=== PATIENT | female | born 1995 | race African-American/Black ===

== ENCOUNTER 2021-08-01 11:31 | Outpatient (REF) | payer MEDICAID, SELFPAY ==
[2021-08-01 14:40] LABS: Abs Immature Grans 0.04 10^3/uL (0.0-0.06); Absolute Basophil Count 0.04 10^3/uL (0.0-0.2); Absolute Eosinophil Count 0.36 10^3/uL (0.0-0.7); Absolute Monocyte Count 0.78 10^3/uL (0.1-0.8); Absolute Neutrophil Count 5.19 10^3/uL (1.2-6.7); Basophils % 0.5; Eosinophils % 4.4; HCT 41.2 % (36.0-46.0); HGB 13.4 g/dL (11.2-15.7); Immature Grans % 0.5; MCH 28.4 pg (27.0-33.0); MCHC 32.5 % (32.0-36.0); MCV 87.3 fL (80-95); Monocytes % 9.6; Nucleated RBC 0 %; Platelet Count 319 10^3/uL (130-400); RBC 4.72 10^6/uL (3.93-5.22); RDW 12.4 % (11.7-14.6); RDW-SD 39.7 fL; WBC 8.11 10^3/uL (4.4-10.8)
[2021-08-01 14:47] LABS: Lithium 0.4 mmol/l (0.6-1.2)
[2021-08-01 14:59] LABS: BUN 11 mg/dL (7-18); CREATININE 0.8 mg/dL (0.55-1.02); Calcium 8.8 mg/dL (8.5-10.1); Calculated LDL 104 mg/dL (<100); Cholesterol 201 mg/dL (<200); Glucose 130 mg/dL (74-106); HDL Cholesterol 44 mg/dL (40-60); Hemoglobin A1C 5.2 % (<5.7); TSH (W/Ref FT4) 0.96 uIU/mL (0.36-3.74); Triglyceride 268 mg/dL (<150)
== END 2021-08-01 11:32 | disposition home or self-care (01) ==
LOC: NCHCN 11:31
PROVIDERS: Visit Provider Psychiatry & Neurology Psychiatry
DX: F60.3 Borderline personality disorder (principal); Z79.899 Other long term (current) drug therapy
CPT/HCPCS: 80061; 82947; 84520; 80178; 82310; 82565; 83036; 84443; 85025

== ENCOUNTER 2021-08-13 21:18 | Outpatient (REF) | payer MEDICAID, SELFPAY ==
[2021-08-15 13:39] LABS: COVID-19 RT-PCR UVMMC Result Negative (Negative)
== END 2021-08-13 21:19 | disposition home or self-care (01) ==
LOC: NCHCN 21:18
PROVIDERS: Visit Provider Family Medicine
DX: Z20.822 Contact with and (suspected) exposure to COVID-19 (principal); J06.9 Acute upper respiratory infection, unspecified
CPT/HCPCS: U0003

== ENCOUNTER 2021-08-21 10:30 | Outpatient (REF) | payer MEDICAID, SELFPAY ==
[2021-08-21 13:15] LABS: Abs Immature Grans 0.03 10^3/uL (0.0-0.06); Absolute Basophil Count 0.04 10^3/uL (0.0-0.2); Absolute Eosinophil Count 0.23 10^3/uL (0.0-0.7); Absolute Lymphocyte Count 1.49 10^3/uL (1.2-3.4); Absolute Monocyte Count 0.57 10^3/uL (0.1-0.8); Absolute Neutrophil Count 5.71 10^3/uL (1.2-6.7); Basophils % 0.5; Eosinophils % 2.9; HGB 13.8 g/dL (11.2-15.7); Immature Grans % 0.4; Lymphocytes % 18.5; MCH 27.9 pg (27.0-33.0); MCHC 32.1 % (32.0-36.0); MPV 10.8 fL (8.0-11.0); Monocytes % 7.1; Neutrophils % 70.6; Nucleated RBC 0 %; Platelet Count 330 10^3/uL (130-400); RBC 4.94 10^6/uL (3.93-5.22); RDW 12.7 % (11.7-14.6); RDW-SD 39.9 fL; WBC 8.07 10^3/uL (4.4-10.8)
== END 2021-08-21 10:31 | disposition home or self-care (01) ==
LOC: LBN 10:30
PROVIDERS: Visit Provider Psychiatry & Neurology Psychiatry
DX: F60.3 Borderline personality disorder (principal); Z79.899 Other long term (current) drug therapy
CPT/HCPCS: 85025

== ENCOUNTER 2021-09-18 12:20 | Outpatient (REF) | payer MEDICAID, SELFPAY ==
[2021-09-18 15:56] LABS: Abs Immature Grans 0.03 10^3/uL (0.0-0.06); Absolute Basophil Count 0.06 10^3/uL (0.0-0.2); Absolute Eosinophil Count 0.16 10^3/uL (0.0-0.7); Absolute Lymphocyte Count 2.47 10^3/uL (1.2-3.4); Absolute Monocyte Count 0.71 10^3/uL (0.1-0.8); Absolute Neutrophil Count 4.96 10^3/uL (1.2-6.7); Basophils % 0.7; Eosinophils % 1.9; HCT 41.9 % (36.0-46.0); HGB 13.5 g/dL (11.2-15.7); Immature Grans % 0.4; Lymphocytes % 29.4; MCHC 32.2 % (32.0-36.0); MCV 86.7 fL (80-95); MPV 11.4 fL (8.0-11.0); Monocytes % 8.5; Neutrophils % 59.1; Nucleated RBC 0 %; Platelet Count 306 10^3/uL (130-400); RBC 4.83 10^6/uL (3.93-5.22); RDW 12.8 % (11.7-14.6); RDW-SD 40.7 fL; WBC 8.39 10^3/uL (4.4-10.8)
== END 2021-09-18 12:21 | disposition home or self-care (01) ==
LOC: LBN 12:20
PROVIDERS: Visit Provider Psychiatry & Neurology Psychiatry
DX: F60.3 Borderline personality disorder (principal); Z79.899 Other long term (current) drug therapy
CPT/HCPCS: 85025

== ENCOUNTER 2021-10-23 16:24 | Outpatient (REF) | payer MEDICAID, SELFPAY ==
[2021-10-23 15:48] LABS: Abs Immature Grans 0.02 10^3/uL (0.0-0.06); Absolute Basophil Count 0.04 10^3/uL (0.0-0.2); Absolute Eosinophil Count 0.31 10^3/uL (0.0-0.7); Absolute Lymphocyte Count 2.51 10^3/uL (1.2-3.4); Absolute Monocyte Count 0.53 10^3/uL (0.1-0.8); Absolute Neutrophil Count 3.39 10^3/uL (1.2-6.7); Basophils % 0.6; Eosinophils % 4.6; HCT 42.2 % (36.0-46.0); HGB 13.7 g/dL (11.2-15.7); Immature Grans % 0.3; Lymphocytes % 36.9; MCH 28.3 pg (27.0-33.0); MCHC 32.5 % (32.0-36.0); MCV 87.2 fL (80-95); MPV 11.7 fL (8.0-11.0); Monocytes % 7.8; Neutrophils % 49.8; Nucleated RBC 0 %; Platelet Count 314 10^3/uL (130-400); RBC 4.84 10^6/uL (3.93-5.22); RDW 12.4 % (11.7-14.6); RDW-SD 39.8 fL
== END 2021-10-23 16:25 | disposition home or self-care (01) ==
LOC: NCHCN 16:24
PROVIDERS: Visit Provider Psychiatry & Neurology Psychiatry
DX: F60.3 Borderline personality disorder (principal); Z79.899 Other long term (current) drug therapy
CPT/HCPCS: 85025

== ENCOUNTER 2021-11-20 08:19 | Outpatient (REF) | payer MEDICAID, SELFPAY ==
[2021-11-20 14:45] LABS: Abs Immature Grans 0.08 10^3/uL (0.0-0.06); Absolute Basophil Count 0.04 10^3/uL (0.0-0.2); Absolute Eosinophil Count 0.12 10^3/uL (0.0-0.7); Absolute Lymphocyte Count 2.63 10^3/uL (1.2-3.4); Absolute Monocyte Count 0.76 10^3/uL (0.1-0.8); Absolute Neutrophil Count 5.36 10^3/uL (1.2-6.7); Basophils % 0.4; Eosinophils % 1.3; HCT 43.4 % (36.0-46.0); Immature Grans % 0.9; Lymphocytes % 29.3; MCH 27.8 pg (27.0-33.0); MCHC 32.3 % (32.0-36.0); MCV 86.1 fL (80-95); MPV 11.2 fL (8.0-11.0); Monocytes % 8.5; Neutrophils % 59.6; Nucleated RBC 0 %; Platelet Count 285 10^3/uL (130-400); RBC 5.04 10^6/uL (3.93-5.22); RDW 12.5 % (11.7-14.6); RDW-SD 38.9 fL; WBC 8.99 10^3/uL (4.4-10.8)
== END 2021-11-20 08:20 | disposition home or self-care (01) ==
LOC: LBN 08:19
PROVIDERS: Visit Provider Psychiatry & Neurology Psychiatry
DX: F60.3 Borderline personality disorder (principal); Z79.899 Other long term (current) drug therapy
CPT/HCPCS: 85025

== ENCOUNTER 2021-12-17 13:15 | Outpatient (REF) | payer MEDICAID, SELFPAY ==
[2021-12-17 20:41] LABS: Abs Immature Grans 0.03 10^3/uL (0.0-0.06); Absolute Basophil Count 0.04 10^3/uL (0.0-0.2); Absolute Eosinophil Count 0.16 10^3/uL (0.0-0.7); Absolute Lymphocyte Count 1.94 10^3/uL (1.2-3.4); Absolute Monocyte Count 0.75 10^3/uL (0.1-0.8); Absolute Neutrophil Count 6.59 10^3/uL (1.2-6.7); Basophils % 0.4; Eosinophils % 1.7; HCT 42.8 % (36.0-46.0); HGB 13.7 g/dL (11.2-15.7); Immature Grans % 0.3; Lymphocytes % 20.4; MCV 87.3 fL (80-95); MPV 11.9 fL (8.0-11.0); Monocytes % 7.9; Neutrophils % 69.3; Platelet Count 290 10^3/uL (130-400); RDW 12.5 % (11.7-14.6); WBC 9.51 10^3/uL (4.4-10.8)
[2021-12-17 21:04] LABS: TSH 1.25 uIU/mL (0.36-3.74)
== END 2021-12-17 13:16 | disposition home or self-care (01) ==
LOC: NCHCN 13:15
PROVIDERS: PCP Internal Medicine; Visit Provider Internal Medicine
DX: F60.3 Borderline personality disorder (principal); Z79.899 Other long term (current) drug therapy; E03.9 Hypothyroidism, unspecified
CPT/HCPCS: 84443; 85025

== ENCOUNTER 2022-01-07 08:51 | Outpatient (REF) | payer MEDICAID, SELFPAY ==
[2022-01-07 14:54] LABS: Abs Immature Grans 0.02 10^3/uL (0.0-0.06); Absolute Basophil Count 0.03 10^3/uL (0.0-0.2); Absolute Eosinophil Count 0.08 10^3/uL (0.0-0.7); Absolute Lymphocyte Count 2.27 10^3/uL (1.2-3.4); Absolute Neutrophil Count 6.79 10^3/uL (1.2-6.7); Basophils % 0.3; Eosinophils % 0.8; HCT 41.3 % (36.0-46.0); HGB 13.7 g/dL (11.2-15.7); Immature Grans % 0.2; Lymphocytes % 22.5; MCH 28.8 pg (27.0-33.0); MCHC 33.2 % (32.0-36.0); MCV 87 fL (80-95); MPV 11.5 fL (8.0-11.0); Monocytes % 8.9; Neutrophils % 67.3; Platelet Count 311 10^3/uL (130-400); RBC 4.75 10^6/uL (3.93-5.22); RDW-SD 38.5 fL; WBC 10.09 10^3/uL (4.4-10.8)
== END 2022-01-07 08:52 | disposition home or self-care (01) ==
LOC: LBN 08:51
PROVIDERS: PCP Internal Medicine; Visit Provider Psychiatry & Neurology Psychiatry
DX: F60.3 Borderline personality disorder (principal); Z79.899 Other long term (current) drug therapy
CPT/HCPCS: 85025

== ENCOUNTER 2022-02-10 09:43 | Outpatient (REF) | payer MEDICAID, SELFPAY ==
[2022-02-10 14:06] LABS: Abs Immature Grans 0.03 10^3/uL (0.0-0.06); Absolute Basophil Count 0.03 10^3/uL (0.0-0.2); Absolute Eosinophil Count 0.08 10^3/uL (0.0-0.7); Absolute Lymphocyte Count 2.07 10^3/uL (1.2-3.4); Absolute Monocyte Count 0.61 10^3/uL (0.1-0.8); Absolute Neutrophil Count 4.27 10^3/uL (1.2-6.7); Basophils % 0.4; Eosinophils % 1.1; HCT 41.7 % (36.0-46.0); HGB 14.2 g/dL (11.2-15.7); Immature Grans % 0.4; Lymphocytes % 29.2; MCH 28.9 pg (27.0-33.0); MCHC 34.1 % (32.0-36.0); MCV 85 fL (80-95); MPV 11.5 fL (8.0-11.0); Monocytes % 8.6; Neutrophils % 60.3; Platelet Count 302 10^3/uL (130-400); RBC 4.91 10^6/uL (3.93-5.22); RDW-SD 36.8 fL; WBC 7.09 10^3/uL (4.4-10.8)
== END 2022-02-10 09:44 | disposition home or self-care (01) ==
LOC: LBN 09:43
PROVIDERS: PCP Internal Medicine; Visit Provider Psychiatry & Neurology Psychiatry
DX: F60.3 Borderline personality disorder (principal); Z79.899 Other long term (current) drug therapy
CPT/HCPCS: 85025

== ENCOUNTER 2022-03-12 15:48 | Outpatient (REF) | payer MEDICAID, SELFPAY ==
[2022-03-12 15:15] LABS: Abs Immature Grans 0.04 10^3/uL (0.0-0.06); Absolute Basophil Count 0.04 10^3/uL (0.0-0.2); Absolute Eosinophil Count 0.16 10^3/uL (0.0-0.7); Absolute Lymphocyte Count 2.14 10^3/uL (1.2-3.4); Absolute Monocyte Count 0.71 10^3/uL (0.1-0.8); Absolute Neutrophil Count 6.55 10^3/uL (1.2-6.7); Basophils % 0.4; Eosinophils % 1.7; HCT 42.7 % (36.0-46.0); HGB 14.5 g/dL (11.2-15.7); Immature Grans % 0.4; Lymphocytes % 22.2; MCV 85 fL (80-95); MPV 11.4 fL (8.0-11.0); Monocytes % 7.4; Neutrophils % 67.9; Platelet Count 296 10^3/uL (130-400); RDW 12.3 % (11.7-14.6); RDW-SD 38.2 fL; WBC 9.64 10^3/uL (4.4-10.8)
== END 2022-03-12 15:49 | disposition home or self-care (01) ==
LOC: LBN 15:48
PROVIDERS: PCP Internal Medicine; Visit Provider Psychiatry & Neurology Psychiatry
DX: F60.3 Borderline personality disorder (principal); Z79.899 Other long term (current) drug therapy
CPT/HCPCS: 85025

== ENCOUNTER 2022-04-02 09:34 | Outpatient (REF) | payer MEDICAID, SELFPAY ==
[2022-04-02 15:13] LABS: Abs Immature Grans 0.04 10^3/uL (0.0-0.06); Absolute Basophil Count 0.05 10^3/uL (0.0-0.2); Absolute Eosinophil Count 0.08 10^3/uL (0.0-0.7); Absolute Lymphocyte Count 2.32 10^3/uL (1.2-3.4); Absolute Monocyte Count 0.78 10^3/uL (0.1-0.8); Absolute Neutrophil Count 6.42 10^3/uL (1.2-6.7); Basophils % 0.5; Eosinophils % 0.8; HCT 42.1 % (36.0-46.0); HGB 14.2 g/dL (11.2-15.7); Immature Grans % 0.4; Lymphocytes % 23.9; MCH 28.6 pg (27.0-33.0); MCHC 33.7 % (32.0-36.0); MCV 85 fL (80-95); MPV 11.4 fL (8.0-11.0); Neutrophils % 66.4; Platelet Count 285 10^3/uL (130-400); RBC 4.97 10^6/uL (3.93-5.22); RDW 12.2 % (11.7-14.6); RDW-SD 37.5 fL; WBC 9.69 10^3/uL (4.4-10.8)
== END 2022-04-02 09:35 | disposition home or self-care (01) ==
LOC: LBN 09:34
PROVIDERS: PCP Internal Medicine; Visit Provider Psychiatry & Neurology Psychiatry
DX: F60.3 Borderline personality disorder (principal); Z79.899 Other long term (current) drug therapy
CPT/HCPCS: 85025

== ENCOUNTER 2022-05-07 15:39 | Outpatient (REF) | payer MEDICAID, SELFPAY ==
[2022-05-07 18:09] LABS: Abs Immature Grans 0.02 10^3/uL (0.0-0.06); Absolute Basophil Count 0.03 10^3/uL (0.0-0.2); Absolute Eosinophil Count 0.18 10^3/uL (0.0-0.7); Absolute Monocyte Count 0.53 10^3/uL (0.1-0.8); Absolute Neutrophil Count 3.15 10^3/uL (1.2-6.7); Basophils % 0.5; Eosinophils % 2.9; HGB 14.3 g/dL (11.2-15.7); Immature Grans % 0.3; MCH 28.4 pg (27.0-33.0); MCHC 33.3 % (32.0-36.0); MCV 86 fL (80-95); MPV 11.8 fL (8.0-11.0); Monocytes % 8.4; Neutrophils % 49.9; Platelet Count 307 10^3/uL (130-400); RBC 5.03 10^6/uL (3.93-5.22); RDW 12.4 % (11.7-14.6); RDW-SD 38.2 fL; WBC 6.31 10^3/uL (4.4-10.8)
== END 2022-05-07 15:40 | disposition home or self-care (01) ==
LOC: LBN 15:39
PROVIDERS: PCP Internal Medicine; Visit Provider Psychiatry & Neurology Psychiatry
DX: F60.3 Borderline personality disorder (principal); Z79.899 Other long term (current) drug therapy
CPT/HCPCS: 85025

== ENCOUNTER 2022-06-04 10:31 | Outpatient (REF) | payer MEDICAID, SELFPAY ==
[2022-06-04 14:38] LABS: Abs Immature Grans 0.02 10^3/uL (0.0-0.06); Absolute Basophil Count 0.06 10^3/uL (0.0-0.2); Absolute Eosinophil Count 0.23 10^3/uL (0.0-0.7); Absolute Lymphocyte Count 2.05 10^3/uL (1.2-3.4); Absolute Monocyte Count 0.66 10^3/uL (0.1-0.8); Absolute Neutrophil Count 4.52 10^3/uL (1.2-6.7); Basophils % 0.8; Eosinophils % 3.1; HCT 42.4 % (36.0-46.0); HGB 14.1 g/dL (11.2-15.7); Immature Grans % 0.3; Lymphocytes % 27.2; MCH 28.5 pg (27.0-33.0); MCHC 33.3 % (32.0-36.0); MCV 86 fL (80-95); MPV 11.1 fL (8.0-11.0); Monocytes % 8.8; Neutrophils % 59.8; Platelet Count 296 10^3/uL (130-400); RBC 4.95 10^6/uL (3.93-5.22); RDW 11.9 % (11.7-14.6); WBC 7.54 10^3/uL (4.4-10.8)
== END 2022-06-04 10:32 | disposition home or self-care (01) ==
LOC: LBN 10:31
PROVIDERS: PCP Internal Medicine; Visit Provider Psychiatry & Neurology Psychiatry
DX: F60.3 Borderline personality disorder (principal); Z79.899 Other long term (current) drug therapy
CPT/HCPCS: 85025

== ENCOUNTER 2022-06-25 15:27 | Outpatient (REF) | payer MEDICAID, SELFPAY ==
[2022-06-25 14:15] LABS: Abs Immature Grans 0.05 10^3/uL (0.0-0.06); Absolute Basophil Count 0.05 10^3/uL (0.0-0.2); Absolute Eosinophil Count 0.22 10^3/uL (0.0-0.7); Absolute Lymphocyte Count 2.35 10^3/uL (1.2-3.4); Absolute Monocyte Count 0.92 10^3/uL (0.1-0.8); Absolute Neutrophil Count 8.23 10^3/uL (1.2-6.7); Basophils % 0.4; Eosinophils % 1.9; HCT 42.9 % (36.0-46.0); HGB 14.6 g/dL (11.2-15.7); Immature Grans % 0.4; Lymphocytes % 19.9; MCV 85 fL (80-95); MPV 11.6 fL (8.0-11.0); Monocytes % 7.8; Neutrophils % 69.6; Platelet Count 277 10^3/uL (130-400); RBC 5.03 10^6/uL (3.93-5.22); RDW 12.4 % (11.7-14.6); RDW-SD 38.2 fL; WBC 11.82 10^3/uL (4.4-10.8)
== END 2022-06-25 15:28 | disposition home or self-care (01) ==
LOC: LBN 15:27
PROVIDERS: PCP Internal Medicine; Visit Provider Psychiatry & Neurology Psychiatry
DX: F60.3 Borderline personality disorder (principal); Z79.899 Other long term (current) drug therapy
CPT/HCPCS: 85025

== ENCOUNTER 2022-07-09 15:46 | Outpatient (REF) | payer MEDICAID, SELFPAY ==
--- NOTE | 2022-07-09 13:00 | PAPFT_PTH ---
PATIENT: Yamile Forbes LOC: [facility] U#:[id number] AGE/SX: 26/F ROOM: RE07/09/[address]: Brittni Rodriguez : 1995 BED: DIS: 07/09/2022 SPEC #: [id number] RECD: 07/10/22 12:53 STATUS: JAMES REQ #: [id number] PAULINE: 07/09/22 13:[address]: Brittni Rodriguez DEPT: [facility] Cytology RECD BY: Vanessa Gaviria Tissues: 1 - CX/ENDOCX FOR PAP SMEARS Procedures: PAP THIN PREP/UVM Screening Comments:
== END 2022-07-09 15:47 | disposition home or self-care (01) ==
LOC: NCHCN 15:46
PROVIDERS: PCP Internal Medicine; Visit Provider Internal Medicine
DX: Z12.4 Encounter for screening for malignant neoplasm of cervix (principal)
CPT/HCPCS: 88142

== ENCOUNTER 2022-07-22 08:30 | Outpatient (REF) | payer MEDICAID, SELFPAY ==
[2022-07-22 14:58] LABS: Abs Immature Grans 0.04 10^3/uL (0.0-0.06); Absolute Basophil Count 0.07 10^3/uL (0.0-0.2); Absolute Eosinophil Count 0.29 10^3/uL (0.0-0.7); Absolute Lymphocyte Count 2.26 10^3/uL (1.2-3.4); Absolute Monocyte Count 0.78 10^3/uL (0.1-0.8); Absolute Neutrophil Count 5.09 10^3/uL (1.2-6.7); Basophils % 0.8; Eosinophils % 3.4; HCT 43.3 % (36.0-46.0); HGB 14.4 g/dL (11.2-15.7); Immature Grans % 0.5; Lymphocytes % 26.5; MCH 28.7 pg (27.0-33.0); MCHC 33.3 % (32.0-36.0); MCV 86 fL (80-95); MPV 11.4 fL (8.0-11.0); Monocytes % 9.1; Neutrophils % 59.7; Platelet Count 336 10^3/uL (130-400); RBC 5.02 10^6/uL (3.93-5.22); RDW 12.4 % (11.7-14.6); RDW-SD 38.6 fL; WBC 8.53 10^3/uL (4.4-10.8)
== END 2022-07-22 08:31 | disposition home or self-care (01) ==
LOC: LBN 08:30
PROVIDERS: PCP Internal Medicine
DX: Z79.899 Other long term (current) drug therapy (principal); F60.3 Borderline personality disorder
CPT/HCPCS: 85025

== ENCOUNTER 2022-08-12 13:59 | Outpatient (REF) | payer MEDICAID, SELFPAY ==
[2022-08-12 14:30] LABS: Abs Immature Grans 0.06 10^3/uL (0.0-0.06); Absolute Lymphocyte Count 2.39 10^3/uL (1.2-3.4); Absolute Monocyte Count 0.95 10^3/uL (0.1-0.8); Basophils % 0.3; Eosinophils % 2.5; HCT 42.5 % (36.0-46.0); HGB 14.1 g/dL (11.2-15.7); Immature Grans % 0.4; MCH 28.5 pg (27.0-33.0); MCHC 33.2 % (32.0-36.0); MCV 86 fL (80-95); Monocytes % 6.4; Neutrophils % 74.4; Platelet Count 306 10^3/uL (130-400); RBC 4.94 10^6/uL (3.93-5.22); RDW 12.3 % (11.7-14.6); RDW-SD 38.5 fL; WBC 14.92 10^3/uL (4.4-10.8)
[2022-08-12 14:31] LABS: Absolute Basophil Count 0.04 10^3/uL (0.0-0.2); Absolute Eosinophil Count 0.37 10^3/uL (0.0-0.7)
== END 2022-08-12 14:00 | disposition home or self-care (01) ==
LOC: LBN 13:59
PROVIDERS: PCP Internal Medicine; Visit Provider Internal Medicine
DX: Z79.899 Other long term (current) drug therapy (principal)
CPT/HCPCS: 85025

== ENCOUNTER 2022-09-02 13:33 | Outpatient (REF) | payer MEDICAID, SELFPAY ==
[2022-09-02 15:53] LABS: Abs Immature Grans 0.06 10^3/uL (0.0-0.06); Absolute Basophil Count 0.05 10^3/uL (0.0-0.2); Absolute Eosinophil Count 0.27 10^3/uL (0.0-0.7); Absolute Lymphocyte Count 2.66 10^3/uL (1.2-3.4); Absolute Monocyte Count 0.87 10^3/uL (0.1-0.8); Basophils % 0.5; Eosinophils % 2.6; HCT 41.4 % (36.0-46.0); HGB 13.7 g/dL (11.2-15.7); Immature Grans % 0.6; Lymphocytes % 25.6; MCH 28.5 pg (27.0-33.0); MCHC 33.1 % (32.0-36.0); MCV 86 fL (80-95); Monocytes % 8.4; Neutrophils % 62.3; Platelet Count 293 10^3/uL (130-400); RDW-SD 38.3 fL; WBC 10.41 10^3/uL (4.4-10.8)
== END 2022-09-02 13:34 | disposition home or self-care (01) ==
LOC: LBN 13:33
PROVIDERS: PCP Internal Medicine
DX: Z79.899 Other long term (current) drug therapy (principal)
CPT/HCPCS: 85025

== ENCOUNTER 2022-09-16 09:44 | Outpatient (REF) | payer MEDICAID, SELFPAY ==
[2022-09-16 15:14] LABS: Abs Immature Grans 0.01 10^3/uL (0.0-0.06); Absolute Basophil Count 0.05 10^3/uL (0.0-0.2); Absolute Eosinophil Count 0.33 10^3/uL (0.0-0.7); Absolute Monocyte Count 0.63 10^3/uL (0.1-0.8); Absolute Neutrophil Count 3.95 10^3/uL (1.2-6.7); Basophils % 0.7; Eosinophils % 4.8; HCT 41.8 % (36.0-46.0); HGB 14.1 g/dL (11.2-15.7); Immature Grans % 0.1; Lymphocytes % 27.7; MCH 28.8 pg (27.0-33.0); MCHC 33.7 % (32.0-36.0); MCV 85 fL (80-95); MPV 11.6 fL (8.0-11.0); Monocytes % 9.2; Neutrophils % 57.5; Platelet Count 312 10^3/uL (130-400); RDW 12.1 % (11.7-14.6); RDW-SD 37.4 fL; WBC 6.87 10^3/uL (4.4-10.8)
== END 2022-09-16 09:45 | disposition home or self-care (01) ==
LOC: LBN 09:44
PROVIDERS: PCP Internal Medicine; Visit Provider Student in an Organized Health Care Education/Training Program
DX: F60.3 Borderline personality disorder (principal); Z79.899 Other long term (current) drug therapy
CPT/HCPCS: 85025

== ENCOUNTER 2022-10-16 17:09 | Outpatient (REF) | payer MEDICAID, SELFPAY ==
[2022-10-16 14:21] LABS: Abs Immature Grans 0.03 10^3/uL (0.0-0.06); Absolute Basophil Count 0.05 10^3/uL (0.0-0.2); Absolute Eosinophil Count 0.31 10^3/uL (0.0-0.7); Absolute Lymphocyte Count 2.37 10^3/uL (1.2-3.4); Absolute Monocyte Count 0.73 10^3/uL (0.1-0.8); Absolute Neutrophil Count 4.95 10^3/uL (1.2-6.7); Basophils % 0.6; Eosinophils % 3.7; HGB 13.9 g/dL (11.2-15.7); Immature Grans % 0.4; Lymphocytes % 28.1; MCH 28.8 pg (27.0-33.0); MCHC 33.9 % (32.0-36.0); MCV 85 fL (80-95); MPV 11.6 fL (8.0-11.0); Monocytes % 8.6; Neutrophils % 58.6; Platelet Count 292 10^3/uL (130-400); RBC 4.83 10^6/uL (3.93-5.22); RDW 12.3 % (11.7-14.6); WBC 8.44 10^3/uL (4.4-10.8)
[2022-10-16 14:34] LABS: Hemoglobin A1C 5.1 % (<5.7)
[2022-10-16 14:42] LABS: ALT 13 U/L (14-59); AST 19 U/L (15-37); Albumin 3.3 g/dL (3.4-5.0); Alkaline Phosphatase 49 U/L (46-116); Anion Gap 12.7 mmol/L (3-11); BUN 9 mg/dL (7-18); Bilirubin, Total 0.2 mg/dL (0.2-1.0); CO2 19.3 mmol/L (21.0-32.0); CREATININE 0.8 mg/dL (0.55-1.02); Calcium 8.7 mg/dL (8.5-10.1); Calculated LDL 79 mg/dL (<100); Chloride 107 mmol/L (98-107); Cholesterol 173 mg/dL (<200); Estimated GFR 104.15 (mL/min/1.73m2); Glucose 91 mg/dL (74-106); HDL Cholesterol 55 mg/dL (40-60); Potassium 3.9 mmol/L (3.5-5.1); Sodium 139 mmol/L (136-145); Total Protein 7.2 g/dL (6.4-8.2); Triglyceride 197 mg/dL (<150)
[2022-10-16 14:56] LABS: Vitamin D 25 Total 73.3 ng/mL (30-100)
== END 2022-10-16 17:10 | disposition home or self-care (01) ==
LOC: NCHCN 17:09
PROVIDERS: Student in an Organized Health Care Education/Training Program; PCP Internal Medicine; Visit Provider Internal Medicine
DX: E55.9 Vitamin D deficiency, unspecified (principal); R73.03 Prediabetes; Z51.81 Encounter for therapeutic drug level monitoring; Z00.00 Encounter for general adult medical examination without abnormal findings; Z79.899 Other long term (current) drug therapy
CPT/HCPCS: 80053; 80061; 82306; 83036; 85025

== ENCOUNTER 2022-11-13 16:14 | Outpatient (REF) | payer MEDICAID, SELFPAY ==
[2022-11-13 14:29] LABS: Abs Immature Grans 0.03 10^3/uL (0.0-0.06); Absolute Basophil Count 0.04 10^3/uL (0.0-0.2); Absolute Eosinophil Count 0.24 10^3/uL (0.0-0.7); Absolute Lymphocyte Count 2.71 10^3/uL (1.2-3.4); Absolute Monocyte Count 0.74 10^3/uL (0.1-0.8); Absolute Neutrophil Count 5.35 10^3/uL (1.2-6.7); Basophils % 0.4; Eosinophils % 2.6; HCT 42.7 % (36.0-46.0); HGB 14.3 g/dL (11.2-15.7); Immature Grans % 0.3; Lymphocytes % 29.7; MCH 28.5 pg (27.0-33.0); MCHC 33.5 % (32.0-36.0); MCV 85 fL (80-95); MPV 11.4 fL (8.0-11.0); Monocytes % 8.1; Neutrophils % 58.9; Platelet Count 324 10^3/uL (130-400); RBC 5.02 10^6/uL (3.93-5.22); RDW 12.2 % (11.7-14.6); RDW-SD 37.4 fL; WBC 9.11 10^3/uL (4.4-10.8)
== END 2022-11-13 16:15 | disposition home or self-care (01) ==
LOC: LBN 16:14
PROVIDERS: PCP Internal Medicine; Visit Provider Student in an Organized Health Care Education/Training Program
DX: Z79.899 Other long term (current) drug therapy (principal); F60.3 Borderline personality disorder
CPT/HCPCS: 85025

== ENCOUNTER 2022-12-12 17:13 | Outpatient (REF) | payer MEDICAID, SELFPAY ==
[2022-12-12 15:28] LABS: Abs Immature Grans 0.04 10^3/uL (0.0-0.06); Absolute Basophil Count 0.04 10^3/uL (0.0-0.2); Absolute Eosinophil Count 0.21 10^3/uL (0.0-0.7); Absolute Lymphocyte Count 2.81 10^3/uL (1.2-3.4); Absolute Monocyte Count 0.81 10^3/uL (0.1-0.8); Absolute Neutrophil Count 5.96 10^3/uL (1.2-6.7); Basophils % 0.4; Eosinophils % 2.1; HCT 43.4 % (36.0-46.0); HGB 14.3 g/dL (11.2-15.7); Immature Grans % 0.4; Lymphocytes % 28.5; MCH 28.1 pg (27.0-33.0); MCHC 32.9 % (32.0-36.0); MCV 85 fL (80-95); MPV 10.9 fL (8.0-11.0); Monocytes % 8.2; Neutrophils % 60.4; Platelet Count 290 10^3/uL (130-400); RBC 5.08 10^6/uL (3.93-5.22); RDW 12.1 % (11.7-14.6); RDW-SD 37.7 fL; WBC 9.87 10^3/uL (4.4-10.8)
[2022-12-12 15:58] LABS: TSH 1.89 uIU/mL (0.36-3.74)
== END 2022-12-12 17:14 | disposition home or self-care (01) ==
LOC: LBN 17:13
PROVIDERS: PCP Internal Medicine; Visit Provider Student in an Organized Health Care Education/Training Program
DX: E03.9 Hypothyroidism, unspecified (principal); Z79.899 Other long term (current) drug therapy
CPT/HCPCS: 84443; 85025

== ENCOUNTER 2023-01-08 09:34 | Outpatient (REF) | payer MEDICAID, SELFPAY ==
[2023-01-08 14:53] LABS: Abs Immature Grans 0.03 10^3/uL (0.0-0.06); Absolute Basophil Count 0.05 10^3/uL (0.0-0.2); Absolute Eosinophil Count 0.24 10^3/uL (0.0-0.7); Absolute Lymphocyte Count 2.43 10^3/uL (1.2-3.4); Absolute Monocyte Count 0.82 10^3/uL (0.1-0.8); Absolute Neutrophil Count 5.98 10^3/uL (1.2-6.7); Basophils % 0.5; Eosinophils % 2.5; HCT 42.1 % (36.0-46.0); HGB 14.1 g/dL (11.2-15.7); Immature Grans % 0.3; Lymphocytes % 25.4; MCH 28.7 pg (27.0-33.0); MCHC 33.5 % (32.0-36.0); MCV 86 fL (80-95); MPV 11.3 fL (8.0-11.0); Monocytes % 8.6; Neutrophils % 62.7; Platelet Count 273 10^3/uL (130-400); RBC 4.91 10^6/uL (3.93-5.22); RDW 11.9 % (11.7-14.6); RDW-SD 37.2 fL; WBC 9.55 10^3/uL (4.4-10.8)
== END 2023-01-08 09:35 | disposition home or self-care (01) ==
LOC: LBN 09:34
PROVIDERS: PCP Internal Medicine; Visit Provider Student in an Organized Health Care Education/Training Program
DX: F60.3 Borderline personality disorder (principal); Z79.899 Other long term (current) drug therapy
CPT/HCPCS: 85025

== ENCOUNTER 2023-02-10 09:49 | Outpatient (REF) | payer MEDICAID, SELFPAY ==
[2023-02-10 14:58] LABS: Abs Immature Grans 0.06 10^3/uL (0.0-0.06); Absolute Eosinophil Count 0.21 10^3/uL (0.0-0.7); Absolute Lymphocyte Count 1.96 10^3/uL (1.2-3.4); Basophils % 0.4; Eosinophils % 1.5; HCT 42.3 % (36.0-46.0); HGB 14.1 g/dL (11.2-15.7); Immature Grans % 0.4; Lymphocytes % 13.8; MCH 28.5 pg (27.0-33.0); MCHC 33.3 % (32.0-36.0); MCV 86 fL (80-95); MPV 11.3 fL (8.0-11.0); Monocytes % 6.6; Neutrophils % 77.3; Platelet Count 325 10^3/uL (130-400); RBC 4.95 10^6/uL (3.93-5.22); RDW 11.9 % (11.7-14.6); RDW-SD 37.1 fL; WBC 14.19 10^3/uL (4.4-10.8)
[2023-02-10 14:59] LABS: Absolute Basophil Count 0.06 10^3/uL (0.0-0.2); Absolute Monocyte Count 0.94 10^3/uL (0.1-0.8); Absolute Neutrophil Count 10.97 10^3/uL (1.2-6.7)
== END 2023-02-10 09:50 | disposition home or self-care (01) ==
LOC: LBN 09:49
PROVIDERS: PCP Internal Medicine; Visit Provider Student in an Organized Health Care Education/Training Program
DX: F60.3 Borderline personality disorder (principal); Z79.899 Other long term (current) drug therapy
CPT/HCPCS: 85025

== ENCOUNTER 2023-03-12 09:18 | Outpatient (REF) | payer MEDICAID, SELFPAY ==
[2023-03-12 15:18] LABS: Abs Immature Grans 0.02 10^3/uL (0.0-0.06); Absolute Basophil Count 0.05 10^3/uL (0.0-0.2); Absolute Eosinophil Count 0.19 10^3/uL (0.0-0.7); Absolute Lymphocyte Count 2.06 10^3/uL (1.2-3.4); Absolute Monocyte Count 0.66 10^3/uL (0.1-0.8); Absolute Neutrophil Count 5.59 10^3/uL (1.2-6.7); Basophils % 0.6; Eosinophils % 2.2; HCT 42.3 % (36.0-46.0); HGB 14.3 g/dL (11.2-15.7); Immature Grans % 0.2; MCH 28.7 pg (27.0-33.0); MCHC 33.8 % (32.0-36.0); MCV 85 fL (80-95); MPV 11.7 fL (8.0-11.0); Monocytes % 7.7; Neutrophils % 65.3; Platelet Count 297 10^3/uL (130-400); RBC 4.99 10^6/uL (3.93-5.22); RDW 12.2 % (11.7-14.6); RDW-SD 36.9 fL; WBC 8.57 10^3/uL (4.4-10.8)
== END 2023-03-12 09:19 | disposition home or self-care (01) ==
LOC: LBN 09:18
PROVIDERS: PCP Internal Medicine; Visit Provider Student in an Organized Health Care Education/Training Program
DX: F60.3 Borderline personality disorder (principal); Z79.899 Other long term (current) drug therapy
CPT/HCPCS: 85025

== ENCOUNTER 2023-04-06 10:53 | Outpatient (REF) | payer MEDICAID, SELFPAY ==
[2023-04-06 14:48] LABS: Abs Immature Grans 0.02 10^3/uL (0.0-0.06); Absolute Basophil Count 0.05 10^3/uL (0.0-0.2); Absolute Eosinophil Count 0.54 10^3/uL (0.0-0.7); Absolute Lymphocyte Count 1.93 10^3/uL (1.2-3.4); Absolute Monocyte Count 0.63 10^3/uL (0.1-0.8); Absolute Neutrophil Count 3.92 10^3/uL (1.2-6.7); Basophils % 0.7; Eosinophils % 7.6; HCT 42.1 % (36.0-46.0); Immature Grans % 0.3; Lymphocytes % 27.2; MCH 28.4 pg (27.0-33.0); MCHC 33.3 % (32.0-36.0); MCV 85 fL (80-95); MPV 11.3 fL (8.0-11.0); Monocytes % 8.9; Neutrophils % 55.3; Platelet Count 282 10^3/uL (130-400); RBC 4.93 10^6/uL (3.93-5.22); RDW 12.3 % (11.7-14.6); RDW-SD 38.3 fL; WBC 7.09 10^3/uL (4.4-10.8)
== END 2023-04-06 10:54 | disposition home or self-care (01) ==
LOC: LBN 10:53
PROVIDERS: PCP Internal Medicine; Visit Provider Student in an Organized Health Care Education/Training Program
DX: F60.3 Borderline personality disorder (principal); Z79.899 Other long term (current) drug therapy
CPT/HCPCS: 85025

== ENCOUNTER 2023-05-06 09:09 | Outpatient (REF) | payer MEDICAID, SELFPAY ==
[2023-05-06 14:59] LABS: Abs Immature Grans 0.05 10^3/uL (0.0-0.06); Absolute Basophil Count 0.06 10^3/uL (0.0-0.2); Absolute Eosinophil Count 0.79 10^3/uL (0.0-0.7); Absolute Neutrophil Count 8.57 10^3/uL (1.2-6.7); Basophils % 0.5; Eosinophils % 6.3; HCT 41.4 % (36.0-46.0); HGB 13.9 g/dL (11.2-15.7); Immature Grans % 0.4; Lymphocytes % 14.9; MCH 28.7 pg (27.0-33.0); MCHC 33.6 % (32.0-36.0); MCV 86 fL (80-95); MPV 11.5 fL (8.0-11.0); Monocytes % 9.4; Neutrophils % 68.5; Platelet Count 261 10^3/uL (130-400); RBC 4.84 10^6/uL (3.93-5.22); RDW 12.3 % (11.7-14.6); RDW-SD 38.2 fL; WBC 12.51 10^3/uL (4.4-10.8)
[2023-05-06 15:03] LABS: Absolute Lymphocyte Count 1.86 10^3/uL (1.2-3.4); Absolute Monocyte Count 1.18 10^3/uL (0.1-0.8)
== END 2023-05-06 09:10 | disposition home or self-care (01) ==
LOC: LBN 09:09
PROVIDERS: PCP Internal Medicine; Visit Provider Student in an Organized Health Care Education/Training Program
DX: F60.3 Borderline personality disorder (principal); Z79.899 Other long term (current) drug therapy
CPT/HCPCS: 85025

== ENCOUNTER 2023-05-29 10:45 | Outpatient (REF) | payer MEDICAID, SELFPAY ==
[2023-05-29 13:42] LABS: Abs Immature Grans 0.01 10^3/uL (0.0-0.06); Absolute Basophil Count 0.06 10^3/uL (0.0-0.2); Absolute Eosinophil Count 0.26 10^3/uL (0.0-0.7); Absolute Lymphocyte Count 1.94 10^3/uL (1.2-3.4); Absolute Neutrophil Count 4.76 10^3/uL (1.2-6.7); Basophils % 0.8; Eosinophils % 3.4; HCT 40.9 % (36.0-46.0); HGB 13.9 g/dL (11.2-15.7); Immature Grans % 0.1; Lymphocytes % 25.1; MCH 28.8 pg (27.0-33.0); MCV 85 fL (80-95); MPV 10.9 fL (8.0-11.0); Monocytes % 9.1; Neutrophils % 61.5; Platelet Count 316 10^3/uL (130-400); RBC 4.83 10^6/uL (3.93-5.22); RDW-SD 36.9 fL; WBC 7.73 10^3/uL (4.4-10.8)
== END 2023-05-29 10:46 | disposition home or self-care (01) ==
LOC: LBN 10:45
PROVIDERS: PCP Internal Medicine; Visit Provider Student in an Organized Health Care Education/Training Program
DX: F60.3 Borderline personality disorder (principal); Z79.899 Other long term (current) drug therapy
CPT/HCPCS: 85025

== ENCOUNTER 2023-06-30 10:16 | Outpatient (REF) | payer MEDICAID, SELFPAY ==
[2023-06-30 14:49] LABS: Abs Immature Grans 0.04 10^3/uL (0.0-0.06); Absolute Basophil Count 0.05 10^3/uL (0.0-0.2); Absolute Eosinophil Count 0.33 10^3/uL (0.0-0.7); Absolute Lymphocyte Count 1.95 10^3/uL (1.2-3.4); Absolute Monocyte Count 0.67 10^3/uL (0.1-0.8); Absolute Neutrophil Count 5.17 10^3/uL (1.2-6.7); Basophils % 0.6; HCT 42.2 % (36.0-46.0); HGB 14.2 g/dL (11.2-15.7); Immature Grans % 0.5; Lymphocytes % 23.8; MCH 28.8 pg (27.0-33.0); MCHC 33.6 % (32.0-36.0); MCV 86 fL (80-95); Monocytes % 8.2; Neutrophils % 62.9; Platelet Count 314 10^3/uL (130-400); RBC 4.93 10^6/uL (3.93-5.22); RDW 12.1 % (11.7-14.6); WBC 8.21 10^3/uL (4.4-10.8)
== END 2023-06-30 10:17 | disposition home or self-care (01) ==
LOC: LBN 10:16
PROVIDERS: PCP Internal Medicine; Visit Provider Student in an Organized Health Care Education/Training Program
DX: Z79.899 Other long term (current) drug therapy (principal)
CPT/HCPCS: 85025

== ENCOUNTER 2023-07-17 21:10 | Outpatient (REF) | payer MEDICAID, SELFPAY ==
--- OUTSIDE RECORDS SUMMARY | 2023-07-17 21:19 | XMS_ITS | Continuity of Care Document ---
Author Name Unknown Address [address], [place] [address] Phone [facility] Address [address], [place] [address] Phone Care Team Providers Care Wood Type Finisher Name Role Phone Brittni Rodriguez Primary Care Provider [phone] Sushil Mccloud Emergency Provider Care Teams Patient Care Team Team Status: Active Member Role Status Dates Brittni Rodriguez Primary Care Provider Active Visit Care Team Team Status: Inactive Member Role Status Dates Brittni Rodriguez Primary Care Provider Active EBER Santiago Emergency Provider Active Allergies, Adverse Reactions, Alerts Allergen Type Severity Reaction Last Updated Verified Status cefaclor Adverse Reaction Unknown June 02, 2023 1:27 pm Yes Active Social History Smoking Status Status Start Date End Date Date of Observa tion Never smoked tobacco (finding) June 02, 2023 2:00pm Observation Status Observation Response Date of Response Alcohol Use No June 02 2:00pm substance use type does not use June 02, 2023 2:00pm Smoking Status Never smoker June 02 2:00pm Additional Data Assigned Sex Female Family History Relationship Condition Age at Onset Recorded Date/T kaia Parent Type 2 diabetes mellitus Unknown Hypertension Unknown Problems Active Problems Medical Problem Onset Date Status Pain with urination Active Medications Medication Status Dose Units Route Directions Qty Days St art Date End Date Instructions Multivitamin (One Daily Multivitamin) tablet Active TAB TABLET June 02, 2023 12:00am Metformin Active MG TABLET June 02, 2023 12:00am Clozapine Active MG TABLET June 02, 2023 12:00am Famotidine Active MG TABLET Octobe r 2022 12:00am Levothyroxine Active MCG TABLET Oct [email or web address] 12:00am Guanfacine Active MG TABLET Octobe r 2022 12:00am Lorazepam Active MG TABLET June 02, 2023 12:00am Topiramate Active MG TABLET Octobe r 2022 12:00am Drospirenone-E thinyl Estradiol Active TAB TABLET June 02, 2023 12:00am Carbamazepine Active MG PO Oct [email or web address] 12:00am Cholecalcifero l (Vitamin D3) Active TABLET June 02, 2023 12:00am Vital Signs Vital Reading Result Reference Range Collection Date/Time Height 63 [in_i] June 02 1:28pm Weight 98.88 kg June 02 1:28pm Body Temperature 97.9 [degF] 97.6-99.6 May 1:28pm Heart Rate 117 /min 60-100 June 02 1:28pm Respiratory rate 19 /min 12-May 1:28pm Oxygen saturation by Pulse oximetry 99 % 95-100 June 02, 2023 1: 28pm BP Systolic 130 mm[Hg] 100-140 June 02 1:28pm BP Diastolic 70 mm[Hg] 50-85 June 02 1:28pm Advance Directives Advance Directive Response Recorded Date/ Time Does patient have an Advance Directive? No June 02, 2023 12:45pm Does patient have a COLST form? No June 02, 2023 12:45pm Insurance Providers Guarantor ZAFAR RICHEY Address [address] [facility] [address] Contact Info. Home Phone: Payer Policy Id Coverage Id Subscriber's Name Subscriber Id Effective Date Expiration Date [facility] [id number] ZAFAR RICHEY [id number] [place] MEDICAID (DO NOT USE) [id number] ZAFAR RICHEY [id number] 2015 Encounters Encounter Location(s) Arrival/Admit Date Discharge/Depart Date Provider(s) Departed [facility] June 02, 2023 12:39pm June 02, 2023 2:17pm null Functional Status Observation Response Date Recorded Living Situation With Care Provider/Roommate Oct leny 2022 1:28pm Home June 02 1:28pm Plan of Treatment Future Tests Future scheduled test information is unavailable Pending Tests Test Name Ordered Date Scheduled Date Urine RBC June 02, 2023 1:49pm Urine WBC June 02, 2023 1:49pm Urine Bacteria June 02, 2023 1:49pm Urine Culture Done June 02, 2023 1:49pm Future Visits Future appointment information is unavailable Referrals to Other Providers Reason for Referral Referral Start Date Provider Provider Contact Information Provider Address Brittni Rodriguez MD Work Phone: [address] [address] Future Procedures Procedure Name Ordered Date Scheduled Date [facility]MIC C&S IF INDICATED June 02, 2023 1:25pm O ct2022 1:49pm Future Medications Future medication information is unavailable Patient Instructions Patient instructions are unavailable Hospital Discharge Instructions Additional Instructions Patient declined written discharge instructions. Patient contact information: Primary phone:[phone] (Note to patient; Please let our registration staff know if this phone number is not correct so we can keep our systems accurate) *Regarding pending labs, you will only be called for positive/abnormal results. Negative/normal results can be found on the patient portal. Suicide Prevention: Dial [phone] for immediate access to crisis hotline.
--- OUTSIDE RECORDS SUMMARY | 2023-07-17 21:19 | XMS_ITS | Continuity of Care Document ---
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 Adult health examination Onset: 09/04/2007 Allergies and adverse reactions Active Allergies Criticality Reaction Severity Comments Date Bactrim DS Tabs Unable to assess criticality Nausea 01/01/2010 Ceclor Caps Unable to assess criticality Hives 04/22/2008 Medications Active Medications SIG Qnty Indications Order ing Provider Date Sdergwkzw687kl Caps ER 12HR two times daily G40.401 Unknown 03/17/2011 Rmrwiu11xm Capsules daily F06.30 Unknown 12/20/2010 Fqrysi83un Capsules F06.30 Unknown 12/20/2010 Lusomgrhgol3hy Tablets daily F91.3 Unknown 05/21/2010 Metformin QNQ115rl Tablets F91.3 Unk nown 05/21/2010 Jqaignmwz5gi Tablets daily G47.00 Unknown 01/18/2010 Fluoxetine HCL (PMDD)10mg Tablets F06.30 Unknown 01/17/2010 Htdkdmk07xat/Act Suspension daily J30.9 Un known 01/23/2009 Cetirizine ZOT36sp Tablets J30.9 Unk nown 01/04/2009 Medroxyprogesterone Uzzgdxj935be/ml Suspension N92.5 Unknown 0 11/23/2007 History Medications Tegretol-EK066cd Tablets ER 12HR two times daily F91.3 Unknown 05/21/2010 - 03/17/2011 Risperdal0.5mg Tablets F06.30 Unknown 01/17/2010 - 05/21/2010 Rndojansa898hx Tablets daily S69.90XA Unknown 09/27/2008 - 04/25/2009 Diphenhydramine JLB32bi Capsules daily Unknown 09/11/2008 - 03/14/2010 Diphenhydramine QGJ31uj Capsules Unknown 04/17/2008 - 09/11/2008 Adderall XR30mg Caps ER 24HR U nknown 04/17/2008 - 01/17/2010 Fluoxetine HCL (PMDD)20mg Capsules daily Unknown 04/17/2008 - 01/17/2010 Clonidine HCL0.2mg Tablets daily Unk nown 04/17/2008 - 01/17/2010 Pszmuqv04gw Tablets Unknown 04/17/2008 - 01/17/2010 Tegretol-AU243pm Tablets ER 12HR two times daily Unknown 04/17/2008 - 01/25/2010 Fceaqvsgmxk0fp Tablets daily F91.3 Unknown 04/17/2008 - 05/21/2010 Adderall XR15mg Caps ER 24HR U nknown 04/17/2008 - 03/14/2011 Cvmwckgzxo57iv Tablets Unknown 01/04/2008 - 01/04/2009 Immunizations CPT Code Status Date Vaccine Lot # [id number] Given 06/10/2010 Influenza Virus Vaccine Split, Intramuscular Use Trivalent 0.5ML 57266 Given 06/29/2009 Influenza Virus Vaccine, Pandemic, Split, Intramuscular Use 25663 Given 05/17/2009 Influenza Virus Vaccine Split, Intramuscular Use Trivalent 0.5ML 79308 Given 10/10/2008 HPV Vacc Type 6 ,11,16,18 3 Dose Schedule Intramuscular Use 0.5ML 63025 Given 06/09/2008 Influenza Virus Vaccine Split, Intramuscular Use Trivalent 0.5ML 77956 Given 06/09/2008 HPV Vacc Type 6 ,11,16,18 3 Dose Schedule Intramuscular Use 0.5ML 83539 Given 05/10/2008 Varicella-Zoster Immune G lobulin 03651 Given 04/17/2008 Meningococcal Conjugate V accine (Menactra) 14998 Given 04/17/2008 HPV Vacc Type 6 ,11,16,18 3 Dose Schedule Intramuscular Use 0.5ML 31092 Given 04/16/2006 Tetanus, Diphth eria Toxoids/Acellular Pertussis Vacc 7 Or > 0.5ML 97272 Given 12/10/2000 Poliovirus Vacc ine Subcutaneous Or Intramuscular 0.5ML 03907 Given 12/10/2000 MMR Vaccine, Live, For Sharma bcutaneous Use 0.5ML 76715 Given 12/10/2000 DTaP & Hib Vaccine 21751 Given 12/28/1998 Varicella (Chicken Pox) V accine 0.5ML 78509 Given 01/20/1997 Hepatitis B Lizandro Adoles Fo r Intramuscular Use 34046 Given 01/20/1997 DTaP & Hib Vaccine 81498 Given 01/20/1997 MMR Vaccine, Live, For Sharma bcutaneous Use 0.5ML 15759 Given 07/11/1996 DTaP & Hib Vaccine 71895 Given 05/12/1996 Hepatitis B Lizandro Adoles Fo r Intramuscular Use 51934 Given 05/12/1996 DTaP & Hib Vaccine 14776 Given 02/15/1996 Hepatitis B Lizandro Adoles Fo r Intramuscular Use 80434 Given 02/15/1996 DTaP & Hib Vaccine
== END 2023-07-17 21:11 | disposition home or self-care (01) ==
LOC: NCHCN 21:10
PROVIDERS: PCP Internal Medicine; Visit Provider Nurse Practitioner Family
DX: N39.0 Urinary tract infection, site not specified (principal)
CPT/HCPCS: 87086

== ENCOUNTER 2023-07-28 15:18 | Outpatient (REF) | payer MEDICAID, SELFPAY ==
[2023-07-28 14:48] LABS: Abs Immature Grans 0.01 10^3/uL (0.0-0.06); Absolute Basophil Count 0.06 10^3/uL (0.0-0.2); Absolute Eosinophil Count 0.21 10^3/uL (0.0-0.7); Absolute Lymphocyte Count 2.54 10^3/uL (1.2-3.4); Absolute Monocyte Count 0.83 10^3/uL (0.1-0.8); Absolute Neutrophil Count 4.13 10^3/uL (1.2-6.7); Basophils % 0.8; Eosinophils % 2.7; HCT 41.9 % (36.0-46.0); HGB 14.1 g/dL (11.2-15.7); Immature Grans % 0.1; Lymphocytes % 32.6; MCH 29.1 pg (27.0-33.0); MCHC 33.7 % (32.0-36.0); MCV 87 fL (80-95); MPV 11.1 fL (8.0-11.0); Monocytes % 10.7; Neutrophils % 53.1; Platelet Count 267 10^3/uL (130-400); RBC 4.84 10^6/uL (3.93-5.22); RDW 12.8 % (11.7-14.6); RDW-SD 40.3 fL; WBC 7.78 10^3/uL (4.4-10.8)
--- OUTSIDE RECORDS SUMMARY | 2023-07-28 15:27 | XMS_ITS | Continuity of Care Document ---
Author Name Unknown Organization [facility] Address [address] [place] [address] Phone [phone] Care Team Providers Care Steel Worker Name Role Phone Miscellaneous Doctor Care Team [...] SIG Qnty Indications Order ing Provider Date Bbrhfsxie868tv Caps ER 12HR two times daily G40.401 Unknown 03/17/2011 Oqdvsc44mr Capsules daily F06.30 Unknown 12/20/2010 Npkdab18uq Capsules F06.30 Unknown 12/20/2010 Zcnupbyigsf8ob Tablets daily F91.3 Unknown 05/21/2010 Metformin LOF749up Tablets F91.3 Unk nown 05/21/2010 Dxqjlmlwb1pf Tablets daily G47.00 Unknown 01/18/2010 Fluoxetine HCL (PMDD)10mg Tablets F06.30 Unknown 01/17/2010 Cxpcxeo29vhv/Act Suspension daily J30.9 Un known 01/23/2009 Cetirizine MBT08gr Tablets J30.9 Unk nown 01/04/2009 Medroxyprogesterone Eprzotn960bg/ml Suspension N92.5 Unknown 0 11/23/2007 History Medications Tegretol-EC996ph Tablets ER 12HR two times daily F91.3 Unknown 05/21/2010 - 03/17/2011 Risperdal0.5mg Tablets F06.30 Unknown 01/17/2010 - 05/21/2010 Vkwtqbqij480av Tablets daily S69.90XA Unknown 09/27/2008 - 04/25/2009 Diphenhydramine ILE52hd Capsules daily Unknown 09/11/2008 - 03/14/2010 Diphenhydramine UCO61op Capsules Unknown 04/17/2008 - 09/11/2008 Adderall XR30mg Caps ER 24HR U nknown 04/17/2008 - 01/17/2010 Fluoxetine HCL (PMDD)20mg Capsules daily Unknown 04/17/2008 - 01/17/2010 Clonidine HCL0.2mg Tablets daily Unk nown 04/17/2008 - 01/17/2010 Xjuoyon48pq Tablets Unknown 04/17/2008 - 01/17/2010 Tegretol-ZV162fp Tablets ER 12HR two times daily Unknown 04/17/2008 - 01/25/2010 Xlmfhszkipo3or Tablets daily F91.3 Unknown 04/17/2008 - 05/21/2010 Adderall XR15mg Caps ER 24HR U nknown 04/17/2008 - 03/14/2011 Qqdmfsiqrv22bg Tablets Unknown 01/04/2008 - 01/04/2009 Immunizations CPT Code Status Date Vaccine Lot # [id number] Given 06/10/2010 Influenza Virus Vaccine Split, Intramuscular Use Trivalent 0.5ML 04010 Given 06/29/2009 Influenza Virus Vaccine, Pandemic, Split, Intramuscular Use 38999 Given 05/17/2009 Influenza Virus Vaccine Split, Intramuscular Use Trivalent 0.5ML 28786 Given 10/10/2008 HPV Vacc Type 6 ,11,16,18 3 Dose Schedule Intramuscular Use 0.5ML 04603 Given 06/09/2008 Influenza Virus Vaccine Split, Intramuscular Use Trivalent 0.5ML 29055 Given 06/09/2008 HPV Vacc Type 6 ,11,16,18 3 Dose Schedule Intramuscular Use 0.5ML 99416 Given 05/10/2008 Varicella-Zoster Immune G lobulin 59156 Given 04/17/2008 Meningococcal Conjugate V accine (Menactra) 06883 Given 04/17/2008 HPV Vacc Type 6 ,11,16,18 3 Dose Schedule Intramuscular Use 0.5ML 28035 Given 04/16/2006 Tetanus, Diphth eria Toxoids/Acellular Pertussis Vacc 7 Or > 0.5ML 24351 Given 12/10/2000 Poliovirus Vacc ine Subcutaneous Or Intramuscular 0.5ML 27456 Given 12/10/2000 MMR Vaccine, Live, For Sharma bcutaneous Use 0.5ML 12610 Given 12/10/2000 DTaP & Hib Vaccine 47935 Given 12/28/1998 Varicella (Chicken Pox) V accine 0.5ML 28426 Given 01/20/1997 Hepatitis B Lizandro Adoles Fo r Intramuscular Use 71410 Given 01/20/1997 DTaP & Hib Vaccine 29656 Given 01/20/1997 MMR Vaccine, Live, For Sharma bcutaneous Use 0.5ML 93341 Given 07/11/1996 DTaP & Hib Vaccine 64096 Given 05/12/1996 Hepatitis B Lizandro Adoles Fo r Intramuscular Use 48287 Given 05/12/1996 DTaP & Hib Vaccine 62497 Given 02/15/1996 Hepatitis B Lizandro Adoles Fo r Intramuscular Use 33360 Given 02/15/1996 DTaP & Hib Vaccine
== END 2023-07-28 15:19 | disposition home or self-care (01) ==
LOC: LBN 15:18
PROVIDERS: PCP Internal Medicine; Visit Provider Student in an Organized Health Care Education/Training Program
DX: Z79.899 Other long term (current) drug therapy (principal)
CPT/HCPCS: 85025

== ENCOUNTER 2023-08-27 11:52 | Outpatient (REF) | payer MEDICAID, SELFPAY ==
--- OUTSIDE RECORDS SUMMARY | 2023-08-27 12:00 | XMS_ITS | Continuity of Care Document ---
Author Name Unknown Organization [facility] Address [address] [place] [address] Phone [phone] Care Team Providers Care Long Lines Operator Name Role Phone Miscellaneous Doctor Care Team [...] SIG Qnty Indications Order ing Provider Date Ftxlgmsvi254ui Caps ER 12HR two times daily G40.401 Unknown 03/17/2011 Njsgia56pp Capsules daily F06.30 Unknown 12/20/2010 Uimtpj22nn Capsules F06.30 Unknown 12/20/2010 Pvzmfgyktfa9xe Tablets daily F91.3 Unknown 05/21/2010 Metformin ASP649hj Tablets F91.3 Unk nown 05/21/2010 Zvchbqftp0rr Tablets daily G47.00 Unknown 01/18/2010 Fluoxetine HCL (PMDD)10mg Tablets F06.30 Unknown 01/17/2010 Redmveu42kst/Act Suspension daily J30.9 Un known 01/23/2009 Cetirizine VJN76kw Tablets J30.9 Unk nown 01/04/2009 Medroxyprogesterone Fblyviu856mq/ml Suspension N92.5 Unknown 0 11/23/2007 History Medications Tegretol-KK324mr Tablets ER 12HR two times daily F91.3 Unknown 05/21/2010 - 03/17/2011 Risperdal0.5mg Tablets F06.30 Unknown 01/17/2010 - 05/21/2010 Gyduysafy693ce Tablets daily S69.90XA Unknown 09/27/2008 - 04/25/2009 Diphenhydramine KVQ00je Capsules daily Unknown 09/11/2008 - 03/14/2010 Diphenhydramine BOM76jy Capsules Unknown 04/17/2008 - 09/11/2008 Adderall XR30mg Caps ER 24HR U nknown 04/17/2008 - 01/17/2010 Fluoxetine HCL (PMDD)20mg Capsules daily Unknown 04/17/2008 - 01/17/2010 Clonidine HCL0.2mg Tablets daily Unk nown 04/17/2008 - 01/17/2010 Aqwjxjo77mo Tablets Unknown 04/17/2008 - 01/17/2010 Tegretol-EB741xb Tablets ER 12HR two times daily Unknown 04/17/2008 - 01/25/2010 Yluzkfwutik5nj Tablets daily F91.3 Unknown 04/17/2008 - 05/21/2010 Adderall XR15mg Caps ER 24HR U nknown 04/17/2008 - 03/14/2011 Cxsqzskqsm69yb Tablets Unknown 01/04/2008 - 01/04/2009 Immunizations CPT Code Status Date Vaccine Lot # [id number] Given 06/10/2010 Influenza Virus Vaccine Split, Intramuscular Use Trivalent 0.5ML 98769 Given 06/29/2009 Influenza Virus Vaccine, Pandemic, Split, Intramuscular Use 79746 Given 05/17/2009 Influenza Virus Vaccine Split, Intramuscular Use Trivalent 0.5ML 50312 Given 10/10/2008 HPV Vacc Type 6 ,11,16,18 3 Dose Schedule Intramuscular Use 0.5ML 63178 Given 06/09/2008 Influenza Virus Vaccine Split, Intramuscular Use Trivalent 0.5ML 19959 Given 06/09/2008 HPV Vacc Type 6 ,11,16,18 3 Dose Schedule Intramuscular Use 0.5ML 11655 Given 05/10/2008 Varicella-Zoster Immune G lobulin 46613 Given 04/17/2008 Meningococcal Conjugate V accine (Menactra) 61548 Given 04/17/2008 HPV Vacc Type 6 ,11,16,18 3 Dose Schedule Intramuscular Use 0.5ML 99367 Given 04/16/2006 Tetanus, Diphth eria Toxoids/Acellular Pertussis Vacc 7 Or > 0.5ML 88323 Given 12/10/2000 Poliovirus Vacc ine Subcutaneous Or Intramuscular 0.5ML 51940 Given 12/10/2000 MMR Vaccine, Live, For Sharma bcutaneous Use 0.5ML 83138 Given 12/10/2000 DTaP & Hib Vaccine 69480 Given 12/28/1998 Varicella (Chicken Pox) V accine 0.5ML 48226 Given 01/20/1997 Hepatitis B Lizandro Adoles Fo r Intramuscular Use 48332 Given 01/20/1997 DTaP & Hib Vaccine 20988 Given 01/20/1997 MMR Vaccine, Live, For Sharma bcutaneous Use 0.5ML 41781 Given 07/11/1996 DTaP & Hib Vaccine 39096 Given 05/12/1996 Hepatitis B Lizandro Adoles Fo r Intramuscular Use 38809 Given 05/12/1996 DTaP & Hib Vaccine 16778 Given 02/15/1996 Hepatitis B Lizandro Adoles Fo r Intramuscular Use 15748 Given 02/15/1996 DTaP & Hib Vaccine
[2023-08-27 14:52] LABS: Abs Immature Grans 0.02 10^3/uL (0.0-0.06); Absolute Basophil Count 0.04 10^3/uL (0.0-0.2); Absolute Eosinophil Count 0.14 10^3/uL (0.0-0.7); Absolute Lymphocyte Count 2.36 10^3/uL (1.2-3.4); Absolute Monocyte Count 0.55 10^3/uL (0.1-0.8); Absolute Neutrophil Count 4.86 10^3/uL (1.2-6.7); Basophils % 0.5; Eosinophils % 1.8; HCT 41.7 % (36.0-46.0); HGB 13.9 g/dL (11.2-15.7); Immature Grans % 0.3; Lymphocytes % 29.6; MCH 28.8 pg (27.0-33.0); MCHC 33.3 % (32.0-36.0); MCV 86 fL (80-95); MPV 11.3 fL (8.0-11.0); Monocytes % 6.9; Neutrophils % 60.9; Platelet Count 287 10^3/uL (130-400); RBC 4.83 10^6/uL (3.93-5.22); RDW 12.4 % (11.7-14.6); RDW-SD 39.1 fL; WBC 7.97 10^3/uL (4.4-10.8)
[2023-08-27 15:55] LABS: ALT 22 U/L (14-59); AST 13 U/L (15-37); Albumin 3.5 g/dL (3.4-5.0); Alkaline Phosphatase 57 U/L (46-116); BUN 9 mg/dL (7-18); Bilirubin, Total 0.3 mg/dL (0.2-1.0); CREATININE 0.9 mg/dL (0.55-1.02); Calculated LDL 93 mg/dL (<100); Chloride 109 mmol/L (98-107); Cholesterol 166 mg/dL (<200); Estimated GFR 89.86 (mL/min/1.73m2); Glucose 98 mg/dL (74-106); HDL Cholesterol 52 mg/dL (40-60); Potassium 3.7 mmol/L (3.5-5.1); Sodium 141 mmol/L (136-145); TSH (W/Ref FT4) 1.17 uIU/mL (0.36-3.74); Total Protein 7.5 g/dL (6.4-8.2); Triglyceride 109 mg/dL (<150)
== END 2023-08-27 11:53 | disposition home or self-care (01) ==
LOC: LBN 11:52
PROVIDERS: PCP Internal Medicine; Visit Provider Student in an Organized Health Care Education/Training Program
DX: F60.3 Borderline personality disorder (principal); Z79.899 Other long term (current) drug therapy
CPT/HCPCS: 80053; 80061; 82306; 84443; 85025

== ENCOUNTER 2023-09-21 19:14 | Outpatient (REF) | payer MEDICAID, SELFPAY ==
--- OUTSIDE RECORDS SUMMARY | 2023-09-21 19:22 | XMS_ITS | Continuity of Care Document ---
Author Name Unknown Organization [facility] Address [address] [place] [address] Phone [phone] Care Team Providers Care Excavating Machine Operator Name Role Phone Miscellaneous Doctor Care [...] SIG Qnty Indications Order ing Provider Date Vbiqrqanq105jv Caps ER 12HR two times daily G40.401 Unknown 03/17/2011 Bajwuv87nz Capsules daily F06.30 Unknown 12/20/2010 Kcmjde81vz Capsules F06.30 Unknown 12/20/2010 Zqszadrifyh6kl Tablets daily F91.3 Unknown 05/21/2010 Metformin SEI183pu Tablets F91.3 Unk nown 05/21/2010 Qupribhvk1ik Tablets daily G47.00 Unknown 01/18/2010 Fluoxetine HCL (PMDD)10mg Tablets F06.30 Unknown 01/17/2010 Lnvfdhy35nrj/Act Suspension daily J30.9 Un known 01/23/2009 Cetirizine SQF04nn Tablets J30.9 Unk nown 01/04/2009 Medroxyprogesterone Zljvmbw583fz/ml Suspension N92.5 Unknown 0 11/23/2007 History Medications Tegretol-YU755ka Tablets ER 12HR two times daily F91.3 Unknown 05/21/2010 - 03/17/2011 Risperdal0.5mg Tablets F06.30 Unknown 01/17/2010 - 05/21/2010 Ythvdpect458ik Tablets daily S69.90XA Unknown 09/27/2008 - 04/25/2009 Diphenhydramine ATX37nz Capsules daily Unknown 09/11/2008 - 03/14/2010 Diphenhydramine TME07zz Capsules Unknown 04/17/2008 - 09/11/2008 Adderall XR30mg Caps ER 24HR U nknown 04/17/2008 - 01/17/2010 Fluoxetine HCL (PMDD)20mg Capsules daily Unknown 04/17/2008 - 01/17/2010 Clonidine HCL0.2mg Tablets daily Unk nown 04/17/2008 - 01/17/2010 Hjuofxh13mx Tablets Unknown 04/17/2008 - 01/17/2010 Tegretol-LC933ww Tablets ER 12HR two times daily Unknown 04/17/2008 - 01/25/2010 Jvenacbmnom7me Tablets daily F91.3 Unknown 04/17/2008 - 05/21/2010 Adderall XR15mg Caps ER 24HR U nknown 04/17/2008 - 03/14/2011 Udsyokonis80au Tablets Unknown 01/04/2008 - 01/04/2009 Immunizations CPT Code Status Date Vaccine Lot # [id number] Given 06/10/2010 Influenza Virus Vaccine Split, Intramuscular Use Trivalent 0.5ML 81274 Given 06/29/2009 Influenza Virus Vaccine, Pandemic, Split, Intramuscular Use 36808 Given 05/17/2009 Influenza Virus Vaccine Split, Intramuscular Use Trivalent 0.5ML 31457 Given 10/10/2008 HPV Vacc Type 6 ,11,16,18 3 Dose Schedule Intramuscular Use 0.5ML 55858 Given 06/09/2008 Influenza Virus Vaccine Split, Intramuscular Use Trivalent 0.5ML 16082 Given 06/09/2008 HPV Vacc Type 6 ,11,16,18 3 Dose Schedule Intramuscular Use 0.5ML 44549 Given 05/10/2008 Varicella-Zoster Immune G lobulin 81712 Given 04/17/2008 Meningococcal Conjugate V accine (Menactra) 36583 Given 04/17/2008 HPV Vacc Type 6 ,11,16,18 3 Dose Schedule Intramuscular Use 0.5ML 18695 Given 04/16/2006 Tetanus, Diphth eria Toxoids/Acellular Pertussis Vacc 7 Or > 0.5ML 31947 Given 12/10/2000 Poliovirus Vacc ine Subcutaneous Or Intramuscular 0.5ML 14198 Given 12/10/2000 MMR Vaccine, Live, For Sharma bcutaneous Use 0.5ML 49466 Given 12/10/2000 DTaP & Hib Vaccine 22446 Given 12/28/1998 Varicella (Chicken Pox) V accine 0.5ML 14842 Given 01/20/1997 Hepatitis B Lizandro Adoles Fo r Intramuscular Use 50022 Given 01/20/1997 DTaP & Hib Vaccine 35814 Given 01/20/1997 MMR Vaccine, Live, For Sharma bcutaneous Use 0.5ML 96267 Given 07/11/1996 DTaP & Hib Vaccine 42476 Given 05/12/1996 Hepatitis B Lizandro Adoles Fo r Intramuscular Use 28089 Given 05/12/1996 DTaP & Hib Vaccine 91065 Given 02/15/1996 Hepatitis B Lizandro Adoles Fo r Intramuscular Use 50264 Given 02/15/1996 DTaP & Hib Vaccine
[2023-09-21 20:27] LABS: Abs Immature Grans 0.01 10^3/uL (0.0-0.06); Absolute Basophil Count 0.05 10^3/uL (0.0-0.2); Absolute Eosinophil Count 0.21 10^3/uL (0.0-0.7); Absolute Lymphocyte Count 2.38 10^3/uL (1.2-3.4); Absolute Monocyte Count 0.65 10^3/uL (0.1-0.8); Absolute Neutrophil Count 3.93 10^3/uL (1.2-6.7); Basophils % 0.7; Eosinophils % 2.9; HCT 42.7 % (36.0-46.0); HGB 14.3 g/dL (11.2-15.7); Immature Grans % 0.1; Lymphocytes % 32.9; MCH 29.2 pg (27.0-33.0); MCHC 33.5 % (32.0-36.0); MCV 87 fL (80-95); MPV 11.6 fL (8.0-11.0); Neutrophils % 54.4; Platelet Count 301 10^3/uL (130-400); RDW 12.2 % (11.7-14.6); RDW-SD 38.9 fL; WBC 7.23 10^3/uL (4.4-10.8)
== END 2023-09-21 19:15 | disposition home or self-care (01) ==
LOC: LBN 19:14
PROVIDERS: PCP Internal Medicine; Visit Provider Student in an Organized Health Care Education/Training Program
DX: F60.3 Borderline personality disorder (principal); Z79.899 Other long term (current) drug therapy
CPT/HCPCS: 85025

== ENCOUNTER 2023-10-20 14:49 | Outpatient (REF) | payer MEDICAID, SELFPAY ==
--- OUTSIDE RECORDS SUMMARY | 2023-10-20 14:57 | XMS_ITS | Continuity of Care Document ---
Author Name Unknown Organization [facility] Address [address] [place] [address] Phone [phone] Care Team Providers Care Brass Molder Helper Name Role Phone Miscellaneous Doctor Care Team [...] SIG Qnty Indications Order ing Provider Date Parvrqdaq725wn Caps ER 12HR two times daily G40.401 Unknown 03/17/2011 Qkpwxm60tc Capsules daily F06.30 Unknown 12/20/2010 Mgxivo97ik Capsules F06.30 Unknown 12/20/2010 Ijqcpstioma4wj Tablets daily F91.3 Unknown 05/21/2010 Metformin KBZ677ae Tablets F91.3 Unk nown 05/21/2010 Kveitqkiz0pr Tablets daily G47.00 Unknown 01/18/2010 Fluoxetine HCL (PMDD)10mg Tablets F06.30 Unknown 01/17/2010 Avueowa53ibc/Act Suspension daily J30.9 Un known 01/23/2009 Cetirizine JRB71xe Tablets J30.9 Unk nown 01/04/2009 Medroxyprogesterone Syoytpr707cf/ml Suspension N92.5 Unknown 0 11/23/2007 History Medications Tegretol-ZP554iq Tablets ER 12HR two times daily F91.3 Unknown 05/21/2010 - 03/17/2011 Risperdal0.5mg Tablets F06.30 Unknown 01/17/2010 - 05/21/2010 Ptstznqvk245wu Tablets daily S69.90XA Unknown 09/27/2008 - 04/25/2009 Diphenhydramine ZFT43an Capsules daily Unknown 09/11/2008 - 03/14/2010 Diphenhydramine HXA19lv Capsules Unknown 04/17/2008 - 09/11/2008 Adderall XR30mg Caps ER 24HR U nknown 04/17/2008 - 01/17/2010 Fluoxetine HCL (PMDD)20mg Capsules daily Unknown 04/17/2008 - 01/17/2010 Clonidine HCL0.2mg Tablets daily Unk nown 04/17/2008 - 01/17/2010 Hwwweto87tp Tablets Unknown 04/17/2008 - 01/17/2010 Tegretol-LJ925mp Tablets ER 12HR two times daily Unknown 04/17/2008 - 01/25/2010 Uomcqvdmgji1dh Tablets daily F91.3 Unknown 04/17/2008 - 05/21/2010 Adderall XR15mg Caps ER 24HR U nknown 04/17/2008 - 03/14/2011 Monmhlvsjk64uq Tablets Unknown 01/04/2008 - 01/04/2009 Immunizations CPT Code Status Date Vaccine Lot # [id number] Given 06/10/2010 Influenza Virus Vaccine Split, Intramuscular Use Trivalent 0.5ML 73853 Given 06/29/2009 Influenza Virus Vaccine, Pandemic, Split, Intramuscular Use 93628 Given 05/17/2009 Influenza Virus Vaccine Split, Intramuscular Use Trivalent 0.5ML 34424 Given 10/10/2008 HPV Vacc Type 6 ,11,16,18 3 Dose Schedule Intramuscular Use 0.5ML 14597 Given 06/09/2008 Influenza Virus Vaccine Split, Intramuscular Use Trivalent 0.5ML 61086 Given 06/09/2008 HPV Vacc Type 6 ,11,16,18 3 Dose Schedule Intramuscular Use 0.5ML 27271 Given 05/10/2008 Varicella-Zoster Immune G lobulin 91124 Given 04/17/2008 Meningococcal Conjugate V accine (Menactra) 76290 Given 04/17/2008 HPV Vacc Type 6 ,11,16,18 3 Dose Schedule Intramuscular Use 0.5ML 05574 Given 04/16/2006 Tetanus, Diphth eria Toxoids/Acellular Pertussis Vacc 7 Or > 0.5ML 77705 Given 12/10/2000 Poliovirus Vacc ine Subcutaneous Or Intramuscular 0.5ML 63652 Given 12/10/2000 MMR Vaccine, Live, For Sharma bcutaneous Use 0.5ML 28794 Given 12/10/2000 DTaP & Hib Vaccine 61317 Given 12/28/1998 Varicella (Chicken Pox) V accine 0.5ML 22772 Given 01/20/1997 Hepatitis B Lizandro Adoles Fo r Intramuscular Use 60228 Given 01/20/1997 DTaP & Hib Vaccine 50876 Given 01/20/1997 MMR Vaccine, Live, For Sharma bcutaneous Use 0.5ML 61092 Given 07/11/1996 DTaP & Hib Vaccine 09379 Given 05/12/1996 Hepatitis B Lizandro Adoles Fo r Intramuscular Use 41098 Given 05/12/1996 DTaP & Hib Vaccine 54529 Given 02/15/1996 Hepatitis B Lizandro Adoles Fo r Intramuscular Use 52841 Given 02/15/1996 DTaP & Hib Vaccine
[2023-10-20 15:51] LABS: Abs Immature Grans 0.06 10^3/uL (0.0-0.06); Absolute Basophil Count 0.06 10^3/uL (0.0-0.2); Absolute Monocyte Count 0.88 10^3/uL (0.1-0.8); Absolute Neutrophil Count 8.57 10^3/uL (1.2-6.7); Basophils % 0.5; Eosinophils % 0.8; HCT 41.9 % (36.0-46.0); Immature Grans % 0.5; Lymphocytes % 19.9; MCH 28.2 pg (27.0-33.0); MCHC 33.4 % (32.0-36.0); MCV 85 fL (80-95); Monocytes % 7.3; Platelet Count 318 10^3/uL (130-400); RBC 4.96 10^6/uL (3.93-5.22); RDW 12.6 % (11.7-14.6); WBC 12.07 10^3/uL (4.4-10.8)
== END 2023-10-20 14:50 | disposition home or self-care (01) ==
LOC: LBN 14:49
PROVIDERS: PCP Internal Medicine; Visit Provider Student in an Organized Health Care Education/Training Program
DX: F60.3 Borderline personality disorder (principal); Z79.899 Other long term (current) drug therapy
CPT/HCPCS: 85025

== ENCOUNTER 2023-11-19 09:31 | Outpatient (REF) | payer MEDICAID, SELFPAY ==
[2023-11-19 14:29] LABS: Abs Immature Grans 0.05 10^3/uL (0.0-0.06); Absolute Basophil Count 0.06 10^3/uL (0.0-0.2); Absolute Eosinophil Count 0.12 10^3/uL (0.0-0.7); Absolute Lymphocyte Count 1.91 10^3/uL (1.2-3.4); Absolute Monocyte Count 0.97 10^3/uL (0.1-0.8); Basophils % 0.5; HCT 42.3 % (36.0-46.0); HGB 14.1 g/dL (11.2-15.7); Immature Grans % 0.4; Lymphocytes % 15.4; MCH 29.4 pg (27.0-33.0); MCHC 33.3 % (32.0-36.0); MCV 88 fL (80-95); MPV 10.9 fL (8.0-11.0); Monocytes % 7.8; Neutrophils % 74.9; Platelet Count 278 10^3/uL (130-400); RBC 4.79 10^6/uL (3.93-5.22); RDW 12.5 % (11.7-14.6); RDW-SD 40.8 fL; WBC 12.41 10^3/uL (4.4-10.8)
== END 2023-11-19 09:32 | disposition home or self-care (01) ==
LOC: LBN 09:31
PROVIDERS: PCP Internal Medicine; Visit Provider Student in an Organized Health Care Education/Training Program
DX: Z79.899 Other long term (current) drug therapy (principal)
CPT/HCPCS: 85025

== ENCOUNTER 2023-12-21 14:38 | Outpatient (REF) | payer MEDICAID, SELFPAY ==
[2023-12-21 15:33] LABS: Abs Immature Grans 0.06 10^3/uL (0.0-0.06); Absolute Basophil Count 0.04 10^3/uL (0.0-0.2); Absolute Eosinophil Count 0.06 10^3/uL (0.0-0.7); Absolute Lymphocyte Count 1.93 10^3/uL (1.2-3.4); Absolute Monocyte Count 0.88 10^3/uL (0.1-0.8); Absolute Neutrophil Count 7.54 10^3/uL (1.2-6.7); Basophils % 0.4; Eosinophils % 0.6; HCT 44.4 % (36.0-46.0); HGB 14.6 g/dL (11.2-15.7); Immature Grans % 0.6; Lymphocytes % 18.4; MCH 28.9 pg (27.0-33.0); MCHC 32.9 % (32.0-36.0); MCV 88 fL (80-95); MPV 11.3 fL (8.0-11.0); Monocytes % 8.4; Neutrophils % 71.6; Platelet Count 276 10^3/uL (130-400); RBC 5.05 10^6/uL (3.93-5.22); RDW 12.7 % (11.7-14.6); RDW-SD 40.5 fL; WBC 10.51 10^3/uL (4.4-10.8)
== END 2023-12-21 14:39 | disposition home or self-care (01) ==
LOC: LBN 14:38
PROVIDERS: PCP Internal Medicine; Visit Provider Student in an Organized Health Care Education/Training Program
DX: Z79.899 Other long term (current) drug therapy (principal)
CPT/HCPCS: 85025

== ENCOUNTER 2023-12-28 15:11 | Outpatient (REF) | payer MEDICAID, SELFPAY | END 2023-12-28 15:12 | disposition home or self-care (01) | LOC: NCHCN 15:11 | PROVIDERS: PCP Internal Medicine; Visit Provider Internal Medicine | DX: R30.0 Dysuria (principal); B96.89 Other specified bacterial agents as the cause of diseases classified elsewhere | CPT/HCPCS: 87086 ==

== ENCOUNTER 2024-01-20 08:00 | Outpatient (REF) | payer MEDICAID, SELFPAY ==
[2024-01-20 15:54] LABS: Abs Immature Grans 0.02 10^3/uL (0.0-0.06); Absolute Basophil Count 0.05 10^3/uL (0.0-0.2); Absolute Eosinophil Count 0.11 10^3/uL (0.0-0.7); Absolute Lymphocyte Count 2.09 10^3/uL (1.2-3.4); Absolute Monocyte Count 0.65 10^3/uL (0.1-0.8); Basophils % 0.7 %; Eosinophils % 1.6 %; HCT 44.2 % (36.0-46.0); HGB 14.6 g/dL (11.2-15.7); Immature Grans % 0.3 %; Lymphocytes % 30.2 %; MCH 28.8 pg (27.0-33.0); MCV 87 fL (80-95); MPV 11.3 fL (8.0-11.0); Monocytes % 9.4 %; Neutrophils % 57.8 %; Platelet Count 256 10^3/uL (130-400); RBC 5.07 10^6/uL (3.93-5.22); RDW 12.1 % (11.7-14.6); RDW-SD 38.5 fL; WBC 6.92 10^3/uL (4.4-10.8)
== END 2024-01-20 08:01 | disposition home or self-care (01) ==
LOC: LBN 08:00
PROVIDERS: PCP Internal Medicine; Visit Provider Student in an Organized Health Care Education/Training Program
DX: Z79.899 Other long term (current) drug therapy (principal)
CPT/HCPCS: 85025

== ENCOUNTER 2024-02-19 13:32 | Outpatient (REF) | payer MEDICAID, SELFPAY ==
[2024-02-19 14:36] LABS: Abs Immature Grans 0.04 10^3/uL (0.0-0.06); Absolute Basophil Count 0.04 10^3/uL (0.0-0.2); Absolute Eosinophil Count 0.14 10^3/uL (0.0-0.7); Absolute Lymphocyte Count 2.09 10^3/uL (1.2-3.4); Absolute Monocyte Count 0.64 10^3/uL (0.1-0.8); Absolute Neutrophil Count 4.66 10^3/uL (1.2-6.7); Basophils % 0.5 %; Eosinophils % 1.8 %; HCT 45.3 % (36.0-46.0); HGB 14.8 g/dL (11.2-15.7); Immature Grans % 0.5 %; Lymphocytes % 27.5 %; MCH 29.1 pg (27.0-33.0); MCHC 32.7 % (32.0-36.0); MCV 89 fL (80-95); Monocytes % 8.4 %; Neutrophils % 61.3 %; RBC 5.09 10^6/uL (3.93-5.22); RDW 12.4 % (11.7-14.6); RDW-SD 40.4 fL; WBC 7.61 10^3/uL (4.4-10.8)
[2024-02-19 14:45] LABS: Diff Comment PLT Morph Reviewed; RBC Morphology Normal
== END 2024-02-19 13:33 | disposition home or self-care (01) ==
LOC: NCHCN 13:32
PROVIDERS: PCP Internal Medicine; Visit Provider Student in an Organized Health Care Education/Training Program
DX: F60.3 Borderline personality disorder (principal); Z79.899 Other long term (current) drug therapy
CPT/HCPCS: 85025

== ENCOUNTER 2024-03-16 09:40 | Outpatient (REF) | payer MEDICAID, SELFPAY ==
[2024-03-16 16:45] LABS: Abs Immature Grans 0.03 10^3/uL (0.0-0.06); Absolute Basophil Count 0.05 10^3/uL (0.0-0.2); Absolute Eosinophil Count 0.12 10^3/uL (0.0-0.7); Absolute Lymphocyte Count 2.52 10^3/uL (1.2-3.4); Absolute Monocyte Count 0.73 10^3/uL (0.1-0.8); Absolute Neutrophil Count 3.62 10^3/uL (1.2-6.7); Basophils % 0.7 %; Eosinophils % 1.7 %; HCT 42.6 % (36.0-46.0); HGB 14.4 g/dL (11.2-15.7); Immature Grans % 0.4 %; Lymphocytes % 35.6 %; MCH 29.1 pg (27.0-33.0); MCHC 33.8 % (32.0-36.0); MCV 86 fL (80-95); MPV 11.7 fL (8.0-11.0); Monocytes % 10.3 %; Neutrophils % 51.3 %; Platelet Count 292 10^3/uL (130-400); RBC 4.95 10^6/uL (3.93-5.22); RDW 12.6 % (11.7-14.6); RDW-SD 39.3 fL; WBC 7.07 10^3/uL (4.4-10.8)
== END 2024-03-16 09:41 | disposition home or self-care (01) ==
LOC: NCHCN 09:40
PROVIDERS: Student in an Organized Health Care Education/Training Program; PCP Internal Medicine; Visit Provider Internal Medicine
DX: F60.3 Borderline personality disorder (principal); Z79.899 Other long term (current) drug therapy
CPT/HCPCS: 85025

== ENCOUNTER 2024-04-11 15:09 | Outpatient (REF) | payer MEDICAID, SELFPAY ==
[2024-04-11 16:02] LABS: Abs Immature Grans 0.05 10^3/uL (0.0-0.06); Absolute Basophil Count 0.05 10^3/uL (0.0-0.2); Absolute Lymphocyte Count 2.25 10^3/uL (1.2-3.4); Absolute Monocyte Count 0.76 10^3/uL (0.1-0.8); Absolute Neutrophil Count 7.37 10^3/uL (1.2-6.7); Basophils % 0.5 %; Eosinophils % 0.9 %; HGB 15.2 g/dL (11.2-15.7); Immature Grans % 0.5 %; Lymphocytes % 21.3 %; MCHC 33.8 % (32.0-36.0); MCV 86 fL (80-95); MPV 11.4 fL (8.0-11.0); Monocytes % 7.2 %; Neutrophils % 69.6 %; Platelet Count 296 10^3/uL (130-400); RBC 5.25 10^6/uL (3.93-5.22); RDW 12.3 % (11.7-14.6); RDW-SD 38.7 fL; WBC 10.58 10^3/uL (4.4-10.8)
== END 2024-04-11 15:10 | disposition home or self-care (01) ==
LOC: LBN 15:09
PROVIDERS: PCP Internal Medicine; Visit Provider Student in an Organized Health Care Education/Training Program
DX: F60.3 Borderline personality disorder (principal); Z79.899 Other long term (current) drug therapy
CPT/HCPCS: 85025

== ENCOUNTER 2024-05-06 15:16 | Outpatient (REF) | payer MEDICAID, SELFPAY ==
[2024-05-06 15:05] LABS: Abs Immature Grans 0.03 10^3/uL (0.0-0.06); Absolute Basophil Count 0.06 10^3/uL (0.0-0.2); Absolute Lymphocyte Count 2.13 10^3/uL (1.2-3.4); Absolute Monocyte Count 0.61 10^3/uL (0.1-0.8); Absolute Neutrophil Count 4.89 10^3/uL (1.2-6.7); Basophils % 0.8 %; Eosinophils % 2.5 %; HCT 43.6 % (36.0-46.0); HGB 14.6 g/dL (11.2-15.7); Immature Grans % 0.4 %; Lymphocytes % 26.9 %; MCHC 33.5 % (32.0-36.0); MCV 87 fL (80-95); Monocytes % 7.7 %; Neutrophils % 61.7 %; Platelet Count 259 10^3/uL (130-400); RBC 5.03 10^6/uL (3.93-5.22); RDW 12.2 % (11.7-14.6); RDW-SD 38.8 fL; WBC 7.92 10^3/uL (4.4-10.8)
[2024-05-06 15:28] LABS: Hemoglobin A1C 5.2 % (<5.7)
== END 2024-05-06 15:17 | disposition home or self-care (01) ==
LOC: NCHCN 15:16
PROVIDERS: Student in an Organized Health Care Education/Training Program; PCP Internal Medicine; Visit Provider Internal Medicine
DX: R73.03 Prediabetes (principal)
CPT/HCPCS: 83036; 85025

== ENCOUNTER 2024-06-02 14:52 | Outpatient (REF) | payer MEDICAID, SELFPAY ==
[2024-06-02 14:48] LABS: Abs Immature Grans 0.02 10^3/uL (0.0-0.06); Absolute Basophil Count 0.05 10^3/uL (0.0-0.2); Absolute Eosinophil Count 0.15 10^3/uL (0.0-0.7); Absolute Monocyte Count 0.61 10^3/uL (0.1-0.8); Absolute Neutrophil Count 3.51 10^3/uL (1.2-6.7); Basophils % 0.8 %; Eosinophils % 2.3 %; HCT 44.7 % (36.0-46.0); HGB 14.5 g/dL (11.2-15.7); Immature Grans % 0.3 %; Lymphocytes % 32.6 %; MCH 28.8 pg (27.0-33.0); MCHC 32.4 % (32.0-36.0); MCV 89 fL (80-95); MPV 11.2 fL (8.0-11.0); Monocytes % 9.5 %; Neutrophils % 54.5 %; Platelet Count 259 10^3/uL (130-400); RBC 5.03 10^6/uL (3.93-5.22); RDW 12.1 % (11.7-14.6); RDW-SD 39.8 fL; WBC 6.44 10^3/uL (4.4-10.8)
== END 2024-06-02 14:53 | disposition home or self-care (01) ==
LOC: NCHCN 14:52
PROVIDERS: PCP Internal Medicine; Visit Provider Internal Medicine
DX: Z79.899 Other long term (current) drug therapy (principal)
CPT/HCPCS: 85025

== ENCOUNTER 2024-07-18 18:57 | Outpatient (REF) | payer MEDICAID, SELFPAY ==
[2024-07-18 16:51] LABS: Abs Immature Grans 0.02 10^3/uL (0.0-0.06); Absolute Basophil Count 0.04 10^3/uL (0.0-0.2); Absolute Lymphocyte Count 2.35 10^3/uL (1.2-3.4); Absolute Monocyte Count 0.69 10^3/uL (0.1-0.8); Absolute Neutrophil Count 4.22 10^3/uL (1.2-6.7); Basophils % 0.5 %; Eosinophils % 1.3 %; HCT 44.8 % (36.0-46.0); HGB 14.6 g/dL (11.2-15.7); Immature Grans % 0.3 %; Lymphocytes % 31.7 %; MCH 28.5 pg (27.0-33.0); MCHC 32.6 % (32.0-36.0); MCV 88 fL (80-95); MPV 11.9 fL (8.0-11.0); Monocytes % 9.3 %; Neutrophils % 56.9 %; Platelet Count 245 10^3/uL (130-400); RBC 5.12 10^6/uL (3.93-5.22); RDW 12.1 % (11.7-14.6); RDW-SD 38.9 fL; WBC 7.42 10^3/uL (4.4-10.8)
== END 2024-07-18 18:58 | disposition home or self-care (01) ==
LOC: LBN 18:57
PROVIDERS: PCP Internal Medicine; Visit Provider Student in an Organized Health Care Education/Training Program
DX: Z79.899 Other long term (current) drug therapy (principal)
CPT/HCPCS: 85025

== ENCOUNTER 2024-08-03 08:27 | Outpatient (REF) | payer MEDICAID, SELFPAY ==
[2024-08-03 15:36] LABS: Abs Immature Grans 0.03 10^3/uL (0.0-0.06); Absolute Basophil Count 0.04 10^3/uL (0.0-0.2); Absolute Eosinophil Count 0.12 10^3/uL (0.0-0.7); Absolute Lymphocyte Count 2.35 10^3/uL (1.2-3.4); Absolute Monocyte Count 0.83 10^3/uL (0.1-0.8); Absolute Neutrophil Count 5.19 10^3/uL (1.2-6.7); Basophils % 0.5 %; Eosinophils % 1.4 %; HCT 42.9 % (36.0-46.0); HGB 14.1 g/dL (11.2-15.7); Immature Grans % 0.4 %; Lymphocytes % 27.5 %; MCH 29.1 pg (27.0-33.0); MCHC 32.9 % (32.0-36.0); MCV 89 fL (80-95); MPV 11.3 fL (8.0-11.0); Monocytes % 9.7 %; Neutrophils % 60.5 %; Platelet Count 257 10^3/uL (130-400); RBC 4.84 10^6/uL (3.93-5.22); RDW 12.4 % (11.7-14.6); RDW-SD 40.6 fL; WBC 8.56 10^3/uL (4.4-10.8)
== END 2024-08-03 08:28 | disposition home or self-care (01) ==
LOC: LBN 08:27
PROVIDERS: PCP Internal Medicine; Visit Provider Student in an Organized Health Care Education/Training Program
DX: Z79.899 Other long term (current) drug therapy (principal)
CPT/HCPCS: 85025

== ENCOUNTER 2024-09-02 16:41 | Outpatient (REF) | payer MEDICAID, SELFPAY ==
[2024-09-02 16:32] LABS: Abs Immature Grans 0.05 10^3/uL (0.0-0.06); Absolute Basophil Count 0.06 10^3/uL (0.0-0.2); Absolute Eosinophil Count 0.08 10^3/uL (0.0-0.7); Absolute Lymphocyte Count 2.15 10^3/uL (1.2-3.4); Absolute Monocyte Count 0.89 10^3/uL (0.1-0.8); Absolute Neutrophil Count 6.78 10^3/uL (1.2-6.7); Basophils % 0.6 %; Eosinophils % 0.8 %; HCT 42.6 % (36.0-46.0); HGB 14.3 g/dL (11.2-15.7); Immature Grans % 0.5 %; Lymphocytes % 21.5 %; MCH 29.3 pg (27.0-33.0); MCHC 33.6 % (32.0-36.0); MCV 87 fL (80-95); MPV 11.2 fL (8.0-11.0); Monocytes % 8.9 %; Neutrophils % 67.7 %; Platelet Count 272 10^3/uL (130-400); RBC 4.88 10^6/uL (3.93-5.22); RDW 12.2 % (11.7-14.6); RDW-SD 39.1 fL; WBC 10.01 10^3/uL (4.4-10.8)
== END 2024-09-02 16:42 | disposition home or self-care (01) ==
LOC: LBN 16:41
PROVIDERS: PCP Internal Medicine; Visit Provider Student in an Organized Health Care Education/Training Program
DX: Z79.899 Other long term (current) drug therapy (principal)
CPT/HCPCS: 85025

== ENCOUNTER 2024-10-05 10:29 | Outpatient (REF) | payer MEDICAID, SELFPAY ==
[2024-10-05 14:09] LABS: Abs Immature Grans 0.03 10^3/uL (0.0-0.06); Absolute Basophil Count 0.05 10^3/uL (0.0-0.2); Absolute Eosinophil Count 0.07 10^3/uL (0.0-0.7); Absolute Monocyte Count 0.76 10^3/uL (0.1-0.8); Absolute Neutrophil Count 4.73 10^3/uL (1.2-6.7); Basophils % 0.6 %; Eosinophils % 0.9 %; HCT 44.1 % (36.0-46.0); HGB 14.4 g/dL (11.2-15.7); Immature Grans % 0.4 %; Lymphocytes % 28.1 %; MCH 28.9 pg (27.0-33.0); MCHC 32.7 % (32.0-36.0); MCV 88 fL (80-95); Monocytes % 9.7 %; Neutrophils % 60.3 %; Platelet Count 281 10^3/uL (130-400); RBC 4.99 10^6/uL (3.93-5.22); RDW 12.4 % (11.7-14.6); RDW-SD 40.2 fL; WBC 7.84 10^3/uL (4.4-10.8)
[2024-10-05 14:26] LABS: ALT 21 U/L (14-59); AST 12 U/L (15-37); Albumin 3.6 g/dL (3.4-5.0); Alkaline Phosphatase 77 U/L (46-116); Anion Gap 9.1 mmol/L (3-11); BUN 8 mg/dL (7-18); Bilirubin, Total 0.28 mg/dL (0.2-1.0); CO2 21.9 mmol/L (21.0-32.0); CREATININE 0.9 mg/dL (0.55-1.02); Calcium 8.9 mg/dL (8.5-10.1); Calculated LDL 89 mg/dL (<100); Chloride 108 mmol/L (98-107); Cholesterol 170 mg/dL (<200); Glucose 116 mg/dL (74-106); HDL Cholesterol 48 mg/dL (40-60); Potassium 3.6 mmol/L (3.5-5.1); Sodium 139 mmol/L (136-145); TSH 1.05 uIU/mL (0.36-3.74); Total Protein 7.6 g/dL (6.4-8.2); Triglyceride 166 mg/dL (<150)
== END 2024-10-05 10:30 | disposition home or self-care (01) ==
LOC: NCHCN 10:29
PROVIDERS: Student in an Organized Health Care Education/Training Program; PCP Internal Medicine; Visit Provider Internal Medicine
DX: E66.9 Obesity, unspecified (principal)
CPT/HCPCS: 80053; 80061; 84443; 85025

== ENCOUNTER 2024-11-02 08:58 | Outpatient (REF) | payer MEDICAID, SELFPAY ==
[2024-11-02 15:55] LABS: Abs Immature Grans 0.03 10^3/uL (0.0-0.06); Absolute Basophil Count 0.04 10^3/uL (0.0-0.2); Absolute Lymphocyte Count 2.22 10^3/uL (1.2-3.4); Absolute Monocyte Count 0.66 10^3/uL (0.1-0.8); Absolute Neutrophil Count 4.04 10^3/uL (1.2-6.7); Basophils % 0.6 %; Eosinophils % 1.4 %; HCT 42.7 % (36.0-46.0); HGB 14.7 g/dL (11.2-15.7); Immature Grans % 0.4 %; Lymphocytes % 31.3 %; MCH 29.8 pg (27.0-33.0); MCHC 34.4 % (32.0-36.0); MCV 87 fL (80-95); MPV 11.4 fL (8.0-11.0); Monocytes % 9.3 %; Platelet Count 290 10^3/uL (130-400); RBC 4.93 10^6/uL (3.93-5.22); RDW 12.1 % (11.7-14.6); RDW-SD 38.5 fL; WBC 7.09 10^3/uL (4.4-10.8)
== END 2024-11-02 08:59 | disposition home or self-care (01) ==
LOC: LBN 08:58
PROVIDERS: PCP Internal Medicine; Visit Provider Student in an Organized Health Care Education/Training Program
DX: Z79.899 Other long term (current) drug therapy (principal)
CPT/HCPCS: 85025

== ENCOUNTER 2024-11-25 15:05 | Outpatient (REF) | payer MEDICAID, SELFPAY ==
[2024-11-25 21:37] LABS: Abs Immature Grans 0.02 10^3/uL (0.0-0.06); Absolute Basophil Count 0.05 10^3/uL (0.0-0.2); Absolute Eosinophil Count 0.06 10^3/uL (0.0-0.7); Absolute Monocyte Count 0.83 10^3/uL (0.1-0.8); Absolute Neutrophil Count 4.58 10^3/uL (1.2-6.7); Basophils % 0.7 %; Eosinophils % 0.8 %; HCT 41.3 % (36.0-46.0); HGB 14.3 g/dL (11.2-15.7); Immature Grans % 0.3 %; Lymphocytes % 27.5 %; MCH 29.7 pg (27.0-33.0); MCHC 34.6 % (32.0-36.0); MCV 86 fL (80-95); MPV 11.4 fL (8.0-11.0); Monocytes % 10.9 %; Neutrophils % 59.8 %; Platelet Count 313 10^3/uL (130-400); RBC 4.82 10^6/uL (3.93-5.22); RDW-SD 37.7 fL; WBC 7.64 10^3/uL (4.4-10.8)
== END 2024-11-25 15:06 | disposition home or self-care (01) ==
LOC: LBN 15:05
PROVIDERS: PCP Internal Medicine; Visit Provider Student in an Organized Health Care Education/Training Program
DX: N92.1 Excessive and frequent menstruation with irregular cycle (principal); Z79.899 Other long term (current) drug therapy
CPT/HCPCS: 85025

== ENCOUNTER 2025-01-04 08:32 | Outpatient (REF) | payer MEDICAID, SELFPAY ==
[2025-01-04 15:13] LABS: Abs Immature Grans 0.03 10^3/uL (0.0-0.06); Absolute Basophil Count 0.05 10^3/uL (0.0-0.2); Absolute Eosinophil Count 0.24 10^3/uL (0.0-0.7); Absolute Lymphocyte Count 2.09 10^3/uL (1.2-3.4); Absolute Monocyte Count 0.76 10^3/uL (0.1-0.8); Absolute Neutrophil Count 4.98 10^3/uL (1.2-6.7); Basophils % 0.6 %; Eosinophils % 2.9 %; HGB 14.8 g/dL (11.2-15.7); Immature Grans % 0.4 %; Lymphocytes % 25.6 %; MCH 28.8 pg (27.0-33.0); MCHC 33.6 % (32.0-36.0); MCV 86 fL (80-95); MPV 11.3 fL (8.0-11.0); Monocytes % 9.3 %; Neutrophils % 61.2 %; Platelet Count 271 10^3/uL (130-400); RBC 5.14 10^6/uL (3.93-5.22); RDW 12.5 % (11.7-14.6); WBC 8.15 10^3/uL (4.4-10.8)
== END 2025-01-04 08:33 | disposition home or self-care (01) ==
LOC: LBN 08:32
PROVIDERS: PCP Internal Medicine; Visit Provider Student in an Organized Health Care Education/Training Program
DX: Z79.899 Other long term (current) drug therapy (principal)
CPT/HCPCS: 85025

== ENCOUNTER 2025-02-06 09:12 | Outpatient (REF) | payer MEDICAID, SELFPAY ==
[2025-02-06 15:24] LABS: Abs Immature Grans 0.04 10^3/uL (0.0-0.06); Absolute Basophil Count 0.04 10^3/uL (0.0-0.2); Absolute Eosinophil Count 0.11 10^3/uL (0.0-0.7); Absolute Lymphocyte Count 1.96 10^3/uL (1.2-3.4); Absolute Monocyte Count 0.79 10^3/uL (0.1-0.8); Absolute Neutrophil Count 4.63 10^3/uL (1.2-6.7); Basophils % 0.5 %; Eosinophils % 1.5 %; HCT 43.9 % (36.0-46.0); HGB 14.1 g/dL (11.2-15.7); Immature Grans % 0.5 %; Lymphocytes % 25.9 %; MCHC 32.1 % (32.0-36.0); MCV 87 fL (80-95); MPV 11.4 fL (8.0-11.0); Monocytes % 10.4 %; Neutrophils % 61.2 %; Platelet Count 267 10^3/uL (130-400); RBC 5.04 10^6/uL (3.93-5.22); RDW 12.5 % (11.7-14.6); RDW-SD 39.8 fL; WBC 7.57 10^3/uL (4.4-10.8)
== END 2025-02-06 09:13 | disposition home or self-care (01) ==
LOC: LBN 09:12
PROVIDERS: PCP Internal Medicine; Visit Provider Student in an Organized Health Care Education/Training Program
DX: Z79.899 Other long term (current) drug therapy (principal)
CPT/HCPCS: 85025

== ENCOUNTER 2025-02-24 15:00 | Outpatient (REF) | payer MEDICAID, SELFPAY ==
[2025-02-24 22:57] LABS: Abs Immature Grans 0.02 10^3/uL (0.0-0.06); Absolute Basophil Count 0.06 10^3/uL (0.0-0.2); Absolute Eosinophil Count 0.07 10^3/uL (0.0-0.7); Absolute Lymphocyte Count 2.34 10^3/uL (1.2-3.4); Basophils % 0.8 %; Eosinophils % 0.9 %; HCT 46.7 % (36.0-46.0); HGB 15.3 g/dL (11.2-15.7); Immature Grans % 0.3 %; Lymphocytes % 31.7 %; MCH 28.5 pg (27.0-33.0); MCHC 32.8 % (32.0-36.0); MCV 87 fL (80-95); MPV 11.5 fL (8.0-11.0); Monocytes % 8.1 %; Neutrophils % 58.2 %; Platelet Count 256 10^3/uL (130-400); RBC 5.37 10^6/uL (3.93-5.22); RDW 12.4 % (11.7-14.6); RDW-SD 39.4 fL; WBC 7.39 10^3/uL (4.4-10.8)
[2025-02-24 23:12] LABS: Hemoglobin A1C 5.1 % (<5.7)
[2025-02-24 23:18] LABS: FREE T4 0.75 ng/dL (0.76-1.46); TSH 0.84 uIU/mL (0.36-3.74)
== END 2025-02-24 15:01 | disposition home or self-care (01) ==
LOC: LBN 15:00
PROVIDERS: PCP Internal Medicine; Visit Provider Student in an Organized Health Care Education/Training Program
DX: Z79.899 Other long term (current) drug therapy (principal)
CPT/HCPCS: 83036; 84439; 84443; 84481; 85025

== ENCOUNTER 2025-04-05 18:45 | Outpatient (REF) | payer MEDICAID, SELFPAY ==
[2025-04-05 19:11] LABS: Abs Immature Grans 0.03 10^3/uL (0.0-0.06); HCT 42.6 % (36.0-46.0); HGB 14.1 g/dL (11.2-15.7); Immature Grans % 0.4 %; MCH 28.5 pg (27.0-33.0); MCHC 33.1 % (32.0-36.0); MCV 86 fL (80-95); MPV 11.6 fL (8.0-11.0); Platelet Count 259 10^3/uL (130-400); RBC 4.95 10^6/uL (3.93-5.22); RDW 12.2 % (11.7-14.6); RDW-SD 38.7 fL; WBC 7.72 10^3/uL (4.4-10.8)
== END 2025-04-05 18:46 | disposition home or self-care (01) ==
LOC: LBN 18:45
PROVIDERS: PCP Internal Medicine; Visit Provider Student in an Organized Health Care Education/Training Program
DX: Z79.899 Other long term (current) drug therapy (principal)
CPT/HCPCS: 85025

== ENCOUNTER 2025-05-05 10:01 | Outpatient (REF) | payer MEDICAID, SELFPAY ==
[2025-05-05 14:49] LABS: Abs Immature Grans 0.05 10^3/uL (0.0-0.06); HCT 42.9 % (36.0-46.0); HGB 14.1 g/dL (11.2-15.7); Immature Grans % 0.5 %; MCH 28.4 pg (27.0-33.0); MCHC 32.9 % (32.0-36.0); MCV 87 fL (80-95); MPV 11.2 fL (8.0-11.0); Platelet Count 268 10^3/uL (130-400); RBC 4.96 10^6/uL (3.93-5.22); RDW 12.5 % (11.7-14.6); RDW-SD 39.5 fL; WBC 10.86 10^3/uL (4.4-10.8)
== END 2025-05-05 10:02 | disposition home or self-care (01) ==
LOC: LBN 10:01
PROVIDERS: PCP Internal Medicine; Visit Provider Student in an Organized Health Care Education/Training Program
DX: Z79.899 Other long term (current) drug therapy (principal)
CPT/HCPCS: 85025

== ENCOUNTER 2025-06-06 08:36 | Outpatient (REF) | payer MEDICARE, MEDICAID, SELFPAY ==
[2025-06-06 14:40] LABS: Abs Immature Grans 0.02 10^3/uL (0.0-0.06); HCT 43.5 % (36.0-46.0); HGB 14.6 g/dL (11.2-15.7); Immature Grans % 0.3 %; MCH 29.1 pg (27.0-33.0); MCHC 33.6 % (32.0-36.0); MCV 87 fL (80-95); MPV 11.2 fL (8.0-11.0); Platelet Count 281 10^3/uL (130-400); RBC 5.02 10^6/uL (3.93-5.22); RDW 12.2 % (11.7-14.6); RDW-SD 39.0 fL; WBC 7.03 10^3/uL (4.4-10.8)
[2025-06-06 15:04] LABS: Hemoglobin A1C 5.0 % (<5.7)
== END 2025-06-06 08:37 | disposition home or self-care (01) ==
LOC: NCHCN 08:36
PROVIDERS: Student in an Organized Health Care Education/Training Program; PCP Internal Medicine; Visit Provider Internal Medicine
DX: R73.03 Prediabetes (principal); Z79.899 Other long term (current) drug therapy
CPT/HCPCS: 83036; 85025